=== PATIENT | male | born 1955 | race Caucasian/White ===

== ENCOUNTER 2017-01-18 12:18 | Inpatient (IN) | payer MEDICARE ==
[2017-01-18] MEDS ORDERED: HEPARIN SODIUM,PORCINE 5,000 UNIT/ML 1 ML VIAL IV STA (12:27)
[2017-01-18] MEDS ORDERED: MORPHINE SULFATE 4 MG/ML SYRINGE IVP STA (12:27)
[2017-01-18] MEDS ORDERED: NITROGLYCERIN OINT 1 INCH/GM PACKET TOPICAL STA (12:27)
[2017-01-18 12:31] LABS: Basophils # (A) 0.1 k/uL (0-0.2); Basophils % (A) 1 %; CH 27.6; CHCM 32.4; Eosinophils # (A) 0.3 k/uL (0-0.7); Eosinophils % (A) 2 %; HCT 44.4 % (39.0-53.0); HDW 2.38; HGB 14.3 gm/dL (13.0-17.5); Luc # (Auto) 0.37; Luc % (Auto) 2; Lymphocytes % (A) 13 %; MCH 27.6 pg (25.0-35.0); MCHC 32.3 g/dL (31.0-37.0); MCV 85.7 fL (80.0-100.0); Mean Platelet Volume 7.6; Monocytes # (A) 0.7 k/uL (0-1.0); Monocytes % (A) 5 %; Neutrophils # (A) 11.7 k/uL (1.3-7.7); Neutrophils % (A) 77 %; RBC 5.18 m/uL (4.30-5.90); RDW 13.8 % (11.5-15.5); WBC 15.2 k/uL (3.8-10.6); WBC (Perox) 14.99
[2017-01-18] MEDS ORDERED: LIDOCAINE 2% INJ 20 MG/ML (20 ML MDV) ONE (12:32)
[2017-01-18] MEDS ORDERED: HEPARIN SODIUM,PORCINE 30 ML 30 ML ONE (12:34)
--- NOTE | 2017-01-18 12:36 | ED ---
Chest Pain HPI - General Chief Complaint: Chest Pain Stated Complaint: STEMI Time Seen by Provider: 01/18/17 12:32 Source: EMS Mode of arrival: EMS - History of Present Illness Initial Comments: 61 years old male presented with the chest pain started last night, then the chest pain went away he does have a history of hypertension but no history of heart attacks in the past his chest pain got better last night with a chest pain returned this morning his blood pressure was well over 200 systolic, EMS picked him up and now wants it did the EKG did confirm the STEMI floor assembler was consulted stat Lab was activated on arrival patient's chest pain was 2/10 but his systolic blood pressure was [address] Flores floor assembler performing breath he recommended we need to put him on a nitro drip and 4000 units of heparin. He denies any headaches no blurred vision no slurred speech no signs of TIA or CVA - Related Data Allergies Allergy/AdvReac Type Severity Reaction Status Date / Time Penicillins Allergy Swelling Verified 01/18/17 12:27 Review of Systems ROS Statement: Those systems with pertinent positive or pertinent negative responses have been documented in the HPI. ROS Other: All systems not noted in ROS Statement are negative. EKG Findings - EKG Comments: EKG Findings:: EKG was reviewed, he was sinus bradycardia ventricular rate is 66 FL interval is 180 QRS duration is 100 QT/QTc is 432/416 noticed some healed STEMI in lead 2 and [address] elevation was more than 3-4 mm in each in lead there was some ST depression in lead 1 there was a mild elevation in lead V6 as well Past Medical History Past Medical History: Hypertension History of Any Multi-Drug Resistant Organisms: None Reported Past Psychological History: No Psychological Hx Reported Smoking Status: Never smoker Past Alcohol Use History: None Reported Past Drug Use History: None Reported General Exam - General Exam Comments Initial Comments: General: The patient is awake and alert, in no distress, and does not appear acutely ill. Skin: Skin is warm and dry and no rashes or lesions are noted. Eye: Pupils are equal, round and reactive to light, extra-ocular movements are intact; there is normal conjunctiva bilaterally. Ears, nose, mouth and throat: There are moist mucous membranes and no oral lesions. Neck: The neck is supple, there is no tenderness or JVD. Cardiovascular: There is a regular rate and rhythm. No murmur, rub or gallop is appreciated. Respiratory: To auscultation bilateral, no wheezing no rhonchi no distress respiratory steen noticed Gastrointestinal: Soft, non-distended, non-tender abdomen without masses or organomegaly noted. There is no rebound or guarding present. Bowel sounds are unremarkable. Back: There is no tenderness to palpation in the midline. There is no obvious deformity. Musculoskeletal: Normal ROM, no tenderness, There is no pedal edema. There is no calf tenderness or swelling. No cords were appreciated. Neurological: CN II-XII intact, Cranial nerves III through XII are intact. There are no obvious motor or sensory deficits. Coordination appears grossly intact. Speech is normal. Psychiatric: Cooperative, appropriate mood & affect, normal judgment. Course Vital Signs 01/18/17 12:21 Pulse Rate 56 L Blood Pressure 223/109 O2 Sat by Pulse 100 Oximetry Critical Care Time Total Critical Care Time: 30 Critical Care Time: [facility] was activated based on the EKG transmitted from the EMS, spoke with the floor assembler he recommended to bring the blood pressure down from 230 systolic with the nitro drip and negative more 4000 units of heparin bolus these recommendations was passed onto the in charge nurse chest x-ray was done EKG was repeated morphine was given, patient already had a mild aspirin and nitro on route to the ER, patient hemodynamically was stable was strapped in a stable form to the [facility] Disposition Clinical Impression: STEMI (ST elevation myocardial infarction) Disposition: ADMITTED IP TO THIS HOSP Condition: Fair
[2017-01-18] MEDS ORDERED: ACETAMINOPHEN TAB 325 MG TAB PO PRN (12:39)
[2017-01-18] MEDS ORDERED: MORPHINE SULFATE 10 MG/ML SYRINGE IV PRN (12:39)
[2017-01-18] MEDS ORDERED: NALOXONE 0.4 MG/ML 1 ML VIAL IV PRN (12:39)
[2017-01-18 12:41] LABS: INR 1.1 (<1.1); Partial Thromboplastin Time 24.2 sec (22.0-30.0); Prothrombin Time 11.2 sec (9.0-12.0)
[2017-01-18 12:44] LABS: ALT 32 U/L (21-72); AST 37 U/L (17-59); Alkaline Phosphatase 96 U/L (38-126); Anion Gap 12 mmol/L; Blood Urea Nitrogen 23 mg/dL (9-20); Calcium 9.8 mg/dL (8.4-10.2); Carbon Dioxide 26 mmol/L (22-30); Chloride 103 mmol/L (98-107); Glucose 142 mg/dL (74-99); Non-African American GFR(MDRD) 56 (>60 ml/min/1.73 sqM); Potassium 4.6 mmol/L (3.5-5.1); Sodium 141 mmol/L (137-145); Total Bilirubin 0.5 mg/dL (0.2-1.3); Total Protein 7.6 g/dL (6.3-8.2)
[2017-01-18] MEDS ORDERED: MIDAZOLAM 2 MG/2 ML VIAL ONE (12:44)
[2017-01-18] MEDS ORDERED: fentaNYL (PF) 50 MCG/ML 2 ML AMP ONE (12:44)
[2017-01-18] MEDS ORDERED: NITROGLYCERIN-D5W PMX 50 MG in DEXTROSE/WATER 1 250ML.BAG IV ONE (12:45)
[2017-01-18] MEDS ORDERED: ENALAPRILAT 1.25 MG/ML 1 ML VIAL ONE (12:45)
[2017-01-18] MEDS ORDERED: SODIUM CHLORIDE 0.9% 1,000 ML IV ONE ×2 (12:45→13:50)
[2017-01-18] MEDS ORDERED: ENALAPRILAT 1.25 MG/ML 1 ML VIAL IV ONE (12:48)
[2017-01-18] MEDS ORDERED: fentaNYL (PF) 50 MCG/ML 2 ML AMP IV ONE (12:49)
[2017-01-18] MEDS ORDERED: MIDAZOLAM 2 MG/2 ML VIAL IV ONE (12:50)
[2017-01-18] MEDS ORDERED: BIVALIRUDIN BOLUS 250 MG/50 ML IV ONE ×2 (13:00→13:05)
[2017-01-18] MEDS ORDERED: TICAGRELOR 90 MG TAB ONE (13:03)
[2017-01-18] MEDS ORDERED: TICAGRELOR 90 MG TAB PO ONE (13:05)
[2017-01-18] MEDS ORDERED: BIVALIRUDIN 250 MG in SODIUM CHLORIDE 0.9% 50 ML IV ONE (13:05)
[2017-01-18 13:11] LABS: Creatine Kinase MB 9.9 ng/mL (0.0-2.4)
[2017-01-18] MEDS: NITROGLYCERIN 1000MCG/10ML SYRINGE INTRACORON ONE ×2 (13:11→13:23)
[2017-01-18 13:12] LABS: Troponin I 1.2 ng/mL (0.000-0.034)
--- NOTE | 2017-01-18 13:15 | XR ---
EXAMINATION TYPE: XR chest 1V portable DATE OF EXAM: 01/18/2017 1:08 PM COMPARISON: NONE HISTORY: Chest pain TECHNIQUE: Single frontal view of the chest is obtained. FINDINGS: Heart and mediastinum are normal. Lungs are clear. Diaphragm is normal. There are chest le ads. IMPRESSION: Normal chest. No heart failure.
[2017-01-18] MEDS ORDERED: IOHEXOL 350 MG/ML 100 ML BOTTLE INJ ONE (13:16)
[2017-01-18] MEDS ORDERED: LABETALOL SYRINGE 5 MG/ML IV ONE (13:20)
[2017-01-18] MEDS ORDERED: HYDROmorphone 2 MG/ML 1 ML SYRINGE ONE (13:21)
[2017-01-18] MEDS ORDERED: HYDROmorphone 2 MG/ML 1 ML SYRINGE IV ONE (13:23)
[2017-01-18] MEDS ORDERED: ONDANSETRON 4 MG/2 ML VIAL ONE (13:34)
[2017-01-18] MEDS ORDERED: ATROPINE SULFATE 0.1 MG/ML 10ML SYRINGE IV ONE (13:34)
[2017-01-18] MEDS ORDERED: ONDANSETRON 4 MG/2 ML VIAL IVP ONE (13:36)
[2017-01-18] MEDS ORDERED: DOPamine DRIP 800 MG in DEXTROSE/WATER 1 500ML.BAG IV ONE (13:45)
[2017-01-18] MEDS ORDERED: NOREPINEPHRINE 16 MG in SODIUM CHLORIDE 0.9% 250 ML IV ONE ×4 (13:59)
[2017-01-18] MEDS ORDERED: MAG HYDROX/AL HYDROX/SIMETH 30 ML CUP PO PRN (14:00)
[2017-01-18] MEDS ORDERED: NITROGLYCERIN SL TABS 0.4 MG TAB SUBLINGUAL PRN (14:00)
[2017-01-18] MEDS ORDERED: ZOLPIDEM 5 MG TAB PO PRN (14:00)
[2017-01-18] MEDS ORDERED: ATROPINE SULFATE 0.1 MG/ML 10ML SYRINGE IV PRN (14:00)
[2017-01-18] MEDS ORDERED: RX INFO: IV CONTRAST WAS GIVEN 1 EACH MISC MISCELLANE PRN (14:00)
[2017-01-18 14:16] LABS: Basophils # (A) 0.1 k/uL (0-0.2); Basophils % (A) 1 %; CH 27.9; CHCM 32.3; Eosinophils # (A) 0.2 k/uL (0-0.7); Eosinophils % (A) 2 %; HCT 31.6 % (39.0-53.0); HDW 2.39; Luc # (Auto) 0.24; Luc % (Auto) 2; Lymphocytes # (A) 1.5 k/uL (1.0-4.8); Lymphocytes % (A) 13 %; MCH 27.6 pg (25.0-35.0); MCHC 31.9 g/dL (31.0-37.0); MCV 86.5 fL (80.0-100.0); Mean Platelet Volume 8.5; Monocytes # (A) 0.5 k/uL (0-1.0); Monocytes % (A) 4 %; Neutrophils # (A) 9.3 k/uL (1.3-7.7); Neutrophils % (A) 78 %; RBC 3.65 m/uL (4.30-5.90); RDW 13.8 % (11.5-15.5); WBC 11.9 k/uL (3.8-10.6); WBC (Perox) 11.54
[2017-01-18 14:26] LABS: HGB 10.1 gm/dL (13.0-17.5)
--- NOTE | 2017-01-18 14:38 | CT ---
EXAMINATION TYPE: CT abdomen pelvis wo con DATE OF EXAM: 01/18/2017 2:30 PM COMPARISON: NONE HISTORY: Retroperitoneal bleed, post heart cath CT DLP: 839 mGycm Automated exposure control for dose reduction was used. TECHNIQUE: Helical acquisition of images was performed from the lung bases through the pelvis. FINDINGS: Lung bases are clear. There is no pleural effusion. Heart size is normal. Liver spleen pancreas gallbladder appear normal. Bile ducts are not dilated. There is no adrenal mass . There is IV contrast in the renal collecting systems from apparently recent contrast heart procedur e. Kidneys have normal size and contour. There is no hydronephrosis. There is no retroperitoneal adenopa thy. Abdominal aorta is atheromatous. There is no ascites. Appendix appears normal. There are a few s igmoid diverticula. There is no evidence of diverticulitis. Bladder distends smoothly. There is no si gn of a pelvic mass. There is no adrenal mass. Bony structures are intact. There are spondylotic wilder ges in the lumbar spine. There is bilateral L5 spondylolysis. There is a minimal first-degree L5-S1 s pondylolisthesis. IMPRESSION: MILD SIGMOID DIVERTICULOSIS. NO DIVERTICULITIS. NO EVIDENCE OF RETROPERITONEAL HEMORRHAGE. ATHEROSCLE ROTIC VASCULAR DISEASE. SPONDYLOLYSIS OF L5 WITH MINIMAL FIRST-DEGREE L5-S1 SPONDYLOLISTHESIS.
[2017-01-18 14:53] LABS: Glucose,Whole Blood 125 mg/dL (75-99)
--- NOTE | 2017-01-18 15:03 | CC ---
DATE OF SERVICE: Mr. Song is a 61-year-old gentleman who came to the emergency room with the complaint of chest pain. EKG was suggestive of acute inferior wall myocardial infarction and the patient was advised primary angioplasty. Patient has a history of hypertension. His blood pressure in the emergency room was significantly elevated and patient was treated with nitrates and heparin. PROCEDURE: The right groin was prepped and draped in the usual manner and the skin was infiltrated with 2% Xylocaine. The right femoral artery was entered using Seldinger technique. A #6 Emirati sheath was placed in. Selective coronary angiography was then performed in multiple projections. SELECTIVE CORONARY ANGIOGRAPHY: Left main coronary artery is normal and patent. LAD is a good caliber blood vessel and gives rise to 2 good-sized diagonal branches. The proximal LAD has about 20% to 30% plaque. The first diagonal branch has ostial stenosis of about 40%. The second diagonal branch has a proximal stenosis of 70% which is small-caliber blood vessel. The circumflex coronary artery is a small and nondominant. Right coronary artery is a large caliber blood vessel with total occlusion in the midportion. FINAL IMPRESSION: This study reveals totally occluded mid right coronary artery. There is about 20% to 30% stenosis in the proximal left anterior descending artery and first diagonal branch has an ostial stenosis of 40%, second diagonal branch has 70% stenosis, which is a small-caliber blood vessel. RECOMMENDATIONS: We will proceed with stent to the right coronary artery.
--- NOTE | 2017-01-18 15:07 | CONS ---
DATE OF CONSULTATION: Mr. Song is a 61-year-old gentleman who came to the emergency room with the complaint of chest pain. Patient gives a history that he started having chest pain yesterday. The pain was in the substernal area associated with some nausea. Patient thought it was indigestion. It subsequently subsided. Patient again started having chest pain this morning, which was about 2 to 3 hours prior to coming to the emergency room. The pain was persistent, he was diaphoretic and nauseated. EKG was suggestive of acute inferior wall myocardial infarction. In view of that, the patient was advised emergent cardiac catheterization. Patient has a prior history of smoking, has a history of hypertension. This patient denies any history of diabetes. There is no previous history of myocardial infarction. PAST MEDICAL HISTORY: History of hypertension. Patient had some surgery on his left hand. REVIEW OF SYSTEMS: Patient denies any history for GI bleeding and blood in the stool, black stool. 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 Physical examination at present reveals a 61-year-old gentleman who is obesely built, has been having mild chest discomfort. Initial blood pressure was 201/110 mmHg. HEENT examination is negative. Neck is supple. There is no increase in jugular venous pressure. Both the carotid pulses are felt. There is no bruit. Chest is symmetrical. HEART: The PMI is not felt. First and second heart sounds are normal. There is no evidence of any murmur. Lungs are clinically clear to auscultation and percussion. Abdomen is soft. Liver and spleen are not enlarged. Bowel sounds are heard. EXTREMITIES: Peripheral pulsations are 2+. EKG shows evidence of acute inferior wall myocardial infarction. FINAL IMPRESSION: 1. This patient has evidence of acute inferior wall myocardial infarction. 2. Moderate to severe hypertension. RECOMMENDATIONS: Patient is given nitro paste and started on nitroglycerin drip, heparin, aspirin and the patient will be taken to the [facility].
--- NOTE | 2017-01-18 15:12 | PTCA ---
DATE OF SERVICE: 01/18/2017 PROCEDURE: PTCA and stenting of a totally occluded mid-RCA performed in the setting of an acute ST elevation OR as a primary procedure. Reperfusion accomplished within [address] Jesus Flores. CLINICAL INFORMATION: Mr. Song presented to the emergency room with chest pain and inferior ST elevation and was evaluated by Dr. Madhav Renee who performed coronary angiography and noted that the RCA was totally occluded. He presented with inferior ST elevation. He was hypertensive, required a lot of antihypertensive medications. Following coronary angiography, I proceeded with PCI expeditiously. A left ventricular end-diastolic pressure was about 24 mmHg and there was no gradient across the aortic valve. A pigtail catheter was used to check these pressures after the intervention procedure. PROCEDURE NOTE: The existing 6 Tajik introducer in the right femoral artery was used to perform procedure. A standard right Cayla guide catheter was used to cannulate the right coronary artery. A BMW wire was used to cross the lesion. Predilatation was performed using a 3.0 caliber, 12 mm trek balloon. A 50 mm long, 3.25 caliber Xience stent was deployed at 14 atmospheres. Patient had more chest pain and more prominent inferior ST elevation. Excellent angiographic result was achieved without any complication. There was remarkably good flow noted. Patient continued to be hypertensive. I gave him some labetalol and also IV nitroglycerin was given for a while and then I gave intra-arterial nitroglycerin almost to the extent of 250 mcg totally. The sheath was taken out and a Perclose device used to secure hemostasis. Following this, patient became vasovagal, became bradycardic, hypotensive, requiring atropine and IV fluids and dopamine. However, he continued to be hypotensive, requiring a combination of 5 mcg of dopamine and 8 to 10 mcg of Levophed. Blood pressure was 108. Patient was asymptomatic. EKG showed significant improvement but ST elevation persisted. I was concerned that he may have it a retroperitoneal hematoma. However, the Perclose device was placed uneventfully. In view of continued hypotension with clinical improvement of bradycardia. I suggested that we discontinue the Angiomax which was done. Patient received Brilinta 180 mg orally and he also received aspirin earlier in the ER. I am recommending a CAT scan of the abdomen and pelvis to rule out any retroperitoneal hematoma and then after that he will go to the ICU. There were no other family members available. We could not reach his and there was nobody who came with him to the hospital. I therefore explained the results of the intervention and the concern about hypotension and the need for CT to look for Retroperitoneal hematoma to the patient and he was sent from the Data Management Analyst to the CT scan department. I also discussed my thoughts in detail with Dr. Madhav Renee. This Patient received Consious sedation for 45 min with Versed and dilaudid. His oxygeg sat was monitored closely. The patient had excellent angiographic result without any angiographic complication. YOMAIRA
[2017-01-18] MEDS: SODIUM CHLORIDE 0.9% 1,000 ML IV SCH ×2 (15:32→22:02)
[2017-01-18] MEDS ORDERED: DOPamine DRIP 800 MG in DEXTROSE/WATER 1 500ML.BAG IV SCH (15:45)
--- NOTE | 2017-01-18 15:46 | XR ---
EXAMINATION TYPE: XR chest 1V portable DATE OF EXAM: 01/18/2017 3:41 PM COMPARISON: Today HISTORY: Short of breath TECHNIQUE: Single frontal view of the chest is obtained. FINDINGS: Heart and mediastinum are normal. Lungs are clear. Diaphragm is normal. There are chest le ads. IMPRESSION: Normal chest. No change.
[2017-01-18 17:37] VITALS: BMI 31.6
[2017-01-18 18:54] LABS: Basophils # (A) 0.1 k/uL (0-0.2); Basophils % (A) 1 %; CH 27.9; CHCM 32.4; Eosinophils # (A) 0.3 k/uL (0-0.7); Eosinophils % (A) 2 %; HCT 42.8 % (39.0-53.0); HDW 2.43; Luc # (Auto) 0.32; Luc % (Auto) 2; Lymphocytes # (A) 2.1 k/uL (1.0-4.8); Lymphocytes % (A) 14 %; MCH 27.9 pg (25.0-35.0); MCHC 32.4 g/dL (31.0-37.0); MCV 86.3 fL (80.0-100.0); Monocytes # (A) 0.8 k/uL (0-1.0); Monocytes % (A) 5 %; Neutrophils # (A) 11.9 k/uL (1.3-7.7); Neutrophils % (A) 77 %; RBC 4.96 m/uL (4.30-5.90); RDW 13.8 % (11.5-15.5); WBC 15.5 k/uL (3.8-10.6); WBC (Perox) 16.18
[2017-01-18 18:57] LABS: HGB 13.9 gm/dL (13.0-17.5)
[2017-01-18 18:59] LABS: Magnesium 1.6 mg/dL (1.6-2.3); Potassium 4.6 mmol/L (3.5-5.1)
[2017-01-18] MEDS: MAGNESIUM SULFATE-D5W PMX 1 GM in DEXTROSE/WATER 1 100ML.BAG IVPB SCH (21:55)
[2017-01-18] MEDS: METOPROLOL TARTRATE 12.5 MG TAB PO SCH (22:02)
[2017-01-18] MEDS: ATORVASTATIN 80 MG TAB PO SCH (22:02)
[2017-01-18] MEDS: TICAGRELOR 90 MG TAB PO SCH (22:03)
--- NOTE | 2017-01-18 22:25 | HP ---
DATE OF ADMISSION: 01/18/2017 CHIEF COMPLAINTS: Chest pain. HISTORY OF PRESENT ILLNESS: This 61-year-old gentleman with a past medical history of multiple medical problems including coronary artery disease, history of CVA/TIA, history of myocardial infarction, history of ventricular peritoneal shunt, history of lithotripsy, history of anxiety being followed by Dr. Daksha Townsend in the outpatient setting was admitted with chest pain to [facility]. The patient initially had chest pain last 8:30. The pain went away and this morning again the patient felt severe pain which was 10 out of 10 in intensity which was crushing in type and EMS was taken and patient was taken to [facility] and admitted to the hospital for further evaluation and treatment. Blood pressure elevated, systolic blood pressure 230. The patient was started on heparin. The patient also previously apparently had a stroke. Also, there is some mild slurring. After admission, EKG showed hyperacute inferior wall myocardial infarction. The chest x-ray showed no acute abnormality. The patient was seen by Cardiology in consultation. The patient underwent cardiac catheterization as well as stenting of the mid RCA. The patient also had abdominal and pelvis CAT scan to rule out the possibility of hemorrhage showed only atherosclerotic vascular disease and spondylolisthesis. The patient had mild shortness of breath. The chest x-ray did not show acute abnormality. Otherwise, WBC 11.3, hemoglobin is 10.1 from 14.0 on admission, possibly dilutional. Troponin is 1.200. Creatinine is 1.300. There is no history of fever, rigors or chills at this time. Past medical history of cerebrovascular accident, transient ischemic, history of hypertension, myocardial infarction. History of degenerative joint disease, history of cardiac catheterization. Medications prior to admission: 1. Valsartan hydrochlorothiazide 320/25 p.o. daily. 2. Lopressor 50 mg b.i.d. 3. Ecotrin 81 mg. 4. Aleve 220 mg p.o. q.h.s. and p.r.n. 5. Lipitor 20 mg. 6. Stool softener 1 tablet daily p.r.n. ALLERGIES: PENICILLIN. FAMILY HISTORY: History of cancer, CVA, dementia, diabetes, prostate disorder in the family. SOCIAL HISTORY: Previous history of smoking, history of THC. REVIEW OF SYSTEMS: ENT: No diminishing hearing. No diminished vision. CARDIOVASCULAR: As mentioned earlier. RESPIRATORY: As mentioned earlier. GI: No nausea. : No dysuria. Nervous system: No numbness or weakness. ALLERGY/IMMUNOLOGY: No asthma or hayfever. MUSCULOSKELETAL: As mentioned earlier. HEMATOLOGY: No history of anemia. ENDOCRINE: No history of diabetes or hypothyroidism. CONSTITUTIONAL: As mentioned earlier. DERMATOLOGY: Negative. RHEUMATOLOGY: Negative. PSYCHIATRY: As mentioned earlier. PHYSICAL EXAMINATION: The patient is alert and oriented times three. Pulse 63. blood pressure 130/64. Respiratory rate 19. Temperature normal. Pulse ox 94% on room air. HEENT: Conjunctivae normal. NECK: No jugular venous distention. CARDIOVASCULAR: S1, S2 muffled. RESPIRATORY: Breath sounds diminished at the bases. A few scattered rhonchi and crackles. ABDOMEN: Soft, nontender. No mass palpable. Legs: No edema. No swelling. Nervous system: Higher functions as mentioned earlier. Moves all four limbs. No focal deficits. LYMPHATICS: No lymph nodes palpable in the neck, axillae or groin. SKIN: No ulcer, rash or bleeding. LABS: WBC is 11.1, hemoglobin 10.9 and creatinine is 1.30. ASSESSMENT: 1. Hyperacute inferior wall myocardial infarction and ST segment elevation myocardial infarction status post cardiac catheterization, stenting. 2. Anemia, normocytic undetermined etiology. 3. Increased WBC, possibly reactive. 4. Increased creatinine with possible acute kidney failure. 5. Increased random blood sugar. 6. Increased creatinine kinase. 7. Troponin I 1.200. 8. History of cerebrovascular accident, transient ischemic attack. 9. Hearing deficits. 10. Hypertension. 11. Degenerative joint disease. 12. History of nicotine dependence. 13. History of ventriculoperitoneal shunt. 14. History of lithotripsy. 15. Anxiety, not otherwise specified. 16. History of THC. 17. Remote history of nicotine dependence. 18. FULL CODE. 19. Mild obesity with body mass index 31.6. ASSESSMENT: This 61-year-old gentleman who presented with multiple complex medical issues, we will monitor the patient closely, continue the current medications, continue symptomatic treatment. Post stent protocol. Otherwise, the CT scan noted. Otherwise, continue antiplatelets agents and beta blockers, and the rest of the medications. Closely follow with cardiology. Prognosis guarded. Further recommendations to follow. MTDD
[2017-01-19] MEDS: MAGNESIUM SULFATE-D5W PMX 1 GM in DEXTROSE/WATER 1 100ML.BAG IVPB SCH (00:26)
[2017-01-19 04:51] LABS: Basophils # (A) 0.1 k/uL (0-0.2); Basophils % (A) 0 %; CH 27.5; CHCM 32.4; Eosinophils # (A) 0.4 k/uL (0-0.7); Eosinophils % (A) 4 %; HCT 37.5 % (39.0-53.0); HDW 2.38; HGB 12.2 gm/dL (13.0-17.5); Luc # (Auto) 0.28; Luc % (Auto) 2; Lymphocytes % (A) 16 %; MCH 27.6 pg (25.0-35.0); MCHC 32.4 g/dL (31.0-37.0); Mean Platelet Volume 7.4; Monocytes # (A) 0.8 k/uL (0-1.0); Monocytes % (A) 7 %; Neutrophils # (A) 8.8 k/uL (1.3-7.7); Neutrophils % (A) 71 %; RBC 4.41 m/uL (4.30-5.90); WBC 12.4 k/uL (3.8-10.6); WBC (Perox) 13.73
[2017-01-19 05:34] LABS: ALT 56 U/L (21-72); AST 254 U/L (17-59); Alkaline Phosphatase 77 U/L (38-126); Anion Gap 9 mmol/L; Blood Urea Nitrogen 19 mg/dL (9-20); Calcium 8.9 mg/dL (8.4-10.2); Carbon Dioxide 24 mmol/L (22-30); Chloride 108 mmol/L (98-107); Glucose 113 mg/dL (74-99); Magnesium 2.3 mg/dL (1.6-2.3); Non-African American GFR(MDRD) >60 (>60 ml/min/1.73 sqM); Potassium 4.4 mmol/L (3.5-5.1); Sodium 141 mmol/L (137-145); Total Bilirubin 0.4 mg/dL (0.2-1.3)
[2017-01-19] MEDS: METOPROLOL TARTRATE 12.5 MG TAB PO SCH ×3 (08:34→20:33)
[2017-01-19] MEDS: ASPIRIN 81 MG CHEW PO SCH (08:34)
[2017-01-19] MEDS: TICAGRELOR 90 MG TAB PO SCH ×2 (08:35→20:33)
[2017-01-19] MEDS ORDERED: PANTOPRAZOLE 40 MG/10 ML VIAL IV SCH (09:00)
--- NOTE | 2017-01-19 09:57 | P.CNPUL ---
History of Present Illness Consult date: 01/19/17 Requesting physician: Vern Dixon Reason for consult: chest pain Chief complaint: Chest pain History of present illness: This is a very pleasant 61-year-old gentleman who follows with Dr. Townsend as his primary care physician. He has a history of hypertension, hyperlipidemia. He presented here yesterday with complaints of chest pain. He was found to have a ST segment elevation in the inferior leads. He was taken to the cardiac catheterization lab and found to have a a 20-30% stenosis of the proximal LAD and first diagonal branch had a 40% ostial stenosis, the second diagonal branch has a 70% stenosis which is a small caliber vessel he was also found to have a totally occluded mid right coronary artery with subsequent stenting. There was some concern regarding possible retroperitoneal bleed following the catheterization however computed tomography scan of the abdomen revealed no evidence of retroperitoneal hemorrhage. He is seen today in consultation in the intensive care unit. He is alert and oriented in no acute distress. He denies any chest pain, palpitations, lightheadedness or dizziness. No shortness of breath, cough or congestion. He is maintaining good O2 saturations in the 90s on room air. He has a 0.9 normal saline at 75 ML's per hour. His chest x-ray shows cardiomegaly with some minimal cephalization. He is hemodynamically stable. Review of Systems 14 point review of system was conducted. All negative other than as mentioned in HPI. Past Medical History Past Medical History: Coronary Artery Disease (CAD), Chest Pain / Angina, CVA/ TIA, Hearing Disorder / Deafness, Hyperlipidemia, Hypertension, Myocardial Infarction (VT), Osteoarthritis (OA) Last Myocardial Infarction Date:: t History of Any Multi-Drug Resistant Organisms: None Reported Past Surgical History: Heart Catheterization With Stent, Orthopedic Surgery, Ventriculoperitoneal Shunt Additional Past Surgical History / Comment(s): Lithotripsy Past Anesthesia/Blood Transfusion Reactions: No Reported Reaction, Motion Sickness Date of Last Stent Placement:: t Past Psychological History: Anxiety Smoking Status: Former smoker Past Alcohol Use History: None Reported Past Drug Use History: Marijuana Additional Drug Use History / Comment(s): Medical Marijuana - Past Family History Father History Unknown: Yes Family Medical History: Cancer, Coronary Artery Disease (CAD), Dementia, Diabetes Mellitus, Prostate Disorder Mother History Unknown: Yes Family Medical History: Diabetes Mellitus, Osteoarthritis (OA) Medications and Allergies Home Medications Medication Instructions Recorded Confirmed Type Aspirin [Adult Low Dose Aspirin EC] 81 mg PO HS 01/18/17 01/18/17 History Atorvastatin Calcium [Lipitor] 20 mg PO HS 01/18/17 01/18/17 History Metoprolol Tartrate [Lopressor] 50 mg PO BID 01/18/17 01/18/17 History Naproxen Sodium [Aleve] 220 mg PO HS PRN 01/18/17 01/18/17 History Stool Softener 1 tab PO DAILY PRN 01/18/17 History Valsartan/Hydrochlorothiazide 1 tab PO DAILY 01/18/17 01/18/17 History [Valsartan-Hctz 320-25 mg Tab] Allergies Allergy/AdvReac Type Severity Reaction Status Date / Time Penicillins Allergy Swelling Verified 01/18/17 17:46 Physical Exam Vitals: Vital Signs Temp Pulse Resp BP Pulse Ox 01/19/17 08:00 98.3 F 57 L 18 164/61 99 01/19/17 07:00 56 L 16 160/62 100 01/19/17 06:00 53 L 18 144/61 98 01/19/17 05:30 51 L 16 144/61 100 01/19/17 05:00 52 L 12 111/55 97 01/19/17 04:30 57 L 14 111/55 97 01/19/17 04:00 97.7 F 57 L 12 110/59 97 01/19/17 03:30 55 L 14 110/59 97 01/19/17 03:00 53 L 14 122/60 98 01/19/17 02:30 53 L 12 122/60 99 01/19/17 02:00 53 L 21 115/53 93 L 01/19/17 01:30 55 L 18 115/53 91 L 01/19/17 01:00 57 L 15 143/69 98 01/19/17 00:30 56 L 40 H 143/69 99 01/19/17 00:00 55 L 14 133/60 99 01/18/17 23:30 55 L 16 133/60 97 01/18/17 23:14 51 L 16 133/60 94 L 01/18/17 23:00 56 L 17 135/51 97 01/18/17 22:30 54 L 16 135/51 100 01/18/17 22:00 54 L 20 122/58 96 01/18/17 21:30 54 L 19 122/58 96 01/18/17 21:00 57 L 23 154/76 95 01/18/17 20:30 61 22 154/76 90 L 01/18/17 20:00 59 L 20 144/59 86 L 01/18/17 19:30 61 22 144/59 95 01/18/17 19:00 60 23 118/73 98 01/18/17 18:30 63 31 H 174/81 95 01/18/17 18:00 65 22 154/59 96 01/18/17 17:30 64 41 H 137/81 95 01/18/17 17:00 64 19 146/79 96 01/18/17 16:30 64 18 159/74 95 01/18/17 16:00 59 L 16 103/63 97 01/18/17 15:30 59 L 15 137/64 95 01/18/17 15:15 63 19 137/61 95 01/18/17 15:00 61 25 H 152/65 94 L 01/18/17 14:45 97.6 F 55 L 18 133/63 93 L Intake and Output 01/18/17 01/19/17 01/19/17 22:59 06:59 14:59 Intake Total 1285 1180 195 Output Total 495 675 200 Balance 790 505 -5 Intake: Intake, IV Titration 925 700 75 Amount Magnesium Sulfate-D5w Pmx 100 100 1 gm In Dextrose/Water 1 100ml.bag @ 100 mls/hr IVPB Q1H [facility] Rx#: [id number] Sodium Chloride 0.9% 1, 825 600 75 000 ml @ 150 mls/hr IV . Q6H40M [facility] Rx#:[id number] Oral 360 480 120 Output: Urine 495 675 200 Other: Voiding Method Urinal Urinal # Voids 1 Weight 88.9 kg 85 kg GENERAL EXAM: Alert, active, comfortable in no apparent distress. HEAD: Normocephalic. EYES: Normal reaction of pupils, equal size. NOSE: Clear with pink turbinates. THROAT: No erythema or exudates. NECK: No masses, no JVD. CHEST: No chest wall deformity. LUNGS: Equal air entry with no crackles, wheeze, rhonchi or dullness. CVS: S1 and S2 normal with no audible mumurs, regular rhythm. ABDOMEN: No hepatosplenomegaly, normal bowel sounds, no guarding or rigidity. SPINE: No scoliosis or deformity SKIN: No rashes CENTRAL NERVOUS SYSTEM: No focal deficits, tone is normal in all 4 extremities. Extremities: There is no significant peripheral edema. No clubbing, no cyanosis. Peripheral pulses are intact. Results - Laboratory Findings CBC and BMP: 01/19/17 04:00 01/19/17 04:00 PT/INR, D-dimer PT 11.2 sec (9.0-12.0) 01/18/17 12:20 INR 1.1 (<1.1) 01/18/17 12:20 Abnormal lab findings: Abnormal Labs 01/18/17 01/18/17 01/18/17 14:08 14:33 18:32 WBC 11.9 H 15.5 H RBC 3.65 L Hgb 10.1 L D Hct 31.6 L Neutrophils # 9.3 H 11.9 H Chloride Glucose POC Glucose (mg/dL) 125 H AST Total Protein Albumin 01/19/17 01/19/17 04:00 04:00 WBC 12.4 H RBC Hgb 12.2 L Hct 37.5 L Neutrophils # 8.8 H Chloride 108 H Glucose 113 H POC Glucose (mg/dL) AST 254 H Total Protein 6.0 L Albumin 3.2 L - Diagnostic Findings Chest x-ray: image reviewed Assessment and Plan Plan: Impression: #1 Acute inferior wall VT status post stenting to the RCA. #2 Hypertension. #3 Hyperlipidemia. #4 Degenerative joint disease. Plan: The patient was seen and evaluated by Dr. Zuniga. His chest x-ray and labs were reviewed. The patient is stable from the pulmonary and critical care standpoint and could be transferred out of the ICU today. We'll continue with his current medications including Brilinta and aspirin. He is on Protonix for GI prophylaxis. We'll increase his activity as tolerated. We'll continue to follow.
[2017-01-19] MEDS: SODIUM CHLORIDE 0.9% 1,000 ML IV SCH (10:10)
[2017-01-19] MEDS: LOSARTAN 25 MG TAB PO SCH (10:10)
--- NOTE | 2017-01-19 12:55 | ECHOF ---
Referral Reason:Inf STEMI MEASUREMENTS -------- HEIGHT: 167.6 cm WEIGHT: 84.8 kg BP: 155/77 RVIDd: 3.1 cm (< 3.3) IVSd: 1.3 cm (0.6 - 1.1) LVIDd: 4.9 cm (3.9 - 5.3) LVPWd: 1.2 cm (0.6 - 1.1) IVSs: 1.7 cm LVIDs: 3.5 cm LVPWs: 1.6 cm LA Diam: 4.2 cm (2.7 - 3.8) LAESV Index (A-L): 22.00 ml/m Ao Diam: 2.9 cm (2.0 - 3.7) AV Cusp: 1.9 cm (1.5 - 2.6) MV EXCURSION: 17.354 mm (> 18.000) MV EF SLOPE: 72 mm/s (70 - 150) EPSS: 0.8 cm MV E Mahesh: 0.80 m/s MV DecT: 296 ms MV A Mahesh: 0.82 m/s MV E/A Ratio: 0.98 FINDINGS -------- Sinus rhythm. This was a technically good study. The left ventricular size is normal. There is mild concentric left ventricular hypertrophy. Overall left ventricular systolic function is low-normal with, an EF between 50 - 55 %. Basal inferior LV wall motion is hypokinetic. The right ventricle is normal in size and function. Normal LA size by volume 22+/-6 ml/m2. The right atrium is normal in size. The aortic valve is trileaflet and appears structurally normal. The mitral valve is normal. There is trace to mild mitral regurgitation. The tricuspid valve appears structurally normal. No regurgitation noted The pulmonic valve was not well visualized. There is no pulmonic regurgitation present. There is no pericardial effusion. CONCLUSIONS -------- 1. Sinus rhythm. 2. This was a technically good study. 3. There is mild concentric left ventricular hypertrophy. 4. Normal LA size by volume 22+/-6 ml/m2. 5. There is trace to mild mitral regurgitation. 6. The tricuspid valve appears structurally normal. 7. The pulmonic valve was not well visualized. 8. There is no pulmonic regurgitation present. 9. There is no pericardial effusion. DESIZING MACHINE OPERATOR HEAD END: Sejal Stratton RDCS
[2017-01-19] MEDS: amLODIPine 10 MG TAB PO SCH (15:04)
[2017-01-19 16:14] LABS: Appearance,Urine Clear (Clear); Bilirubin,Urine Negative (Negative); Glucose,Urine (UA) Negative (Negative); Ketones,Urine Negative (Negative); Leukocyte Esterase,Urine Negative (Negative); Nitrite,Urine Negative (Negative); Protein,Urine Negative (Negative); Specific Gravity,Urine 1.003 (1.001-1.035); UA Billing (MACRO vs. MICRO) CHEM; Urobilinogen,Urine <2.0 mg/dL (<2.0)
[2017-01-19] MEDS ORDERED: ALPRAZolam 0.25 MG TAB PO PRN (19:08)
--- NOTE | 2017-01-19 19:37 | PN ---
61-year-old gentleman admitted to the hospital by Zack. Patient admitted to the hospital with acute inferior myocardial wall infarction yesterday, underwent cardiac catheterization done by Dr. Madhav Renee and RCA stent was done by Dr. Jesus Flores. Patient has been doing very well. The patient was on dopamine for a short period of time. Has been taken off. The patient blood pressures have been running high. We will add amlodipine 10 mg p.o. daily and continue other medications. We will hold the metoprolol tartrate if the pulse rate is less than 60. Continue potassium and Cozaar 25 mg p.o. daily, atorvastatin 80 mg p.o. daily. Patient denies any symptoms. Patient is on Brilinta 90 mg p.o. b.i.d. along with aspirin 81 mg p.o. daily. Patient's vital signs are stable. Denies any chest or pressure. Patient quit smoking a few years ago. Patient pulse rate of 65 beats per minute and regular, blood pressure of 177/78, received 10 mg amlodipine for control of blood pressure. Respiratory rate of 18. HEAD: Normocephalic. HEENT unremarkable. Neck is supple. No thyroid enlargement. No bruit noted. Good carotid upstroke bilaterally. Chest is symmetrical. CARDIAC EXAMINATION: S1, S2. Lungs are clinically clear to auscultation and percussion. ABDOMEN: Soft, no organomegaly. Active bowel sounds. EXTREMITIES: Peripheral pulses. No pedal edema. 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 ASSESSMENT: 1. Status post acute inferior myocardial wall infarction with stenting of the RCA stable at present time. 2. Hypertension. 3. Hyperlipidemia. Continue current medications. We will add amlodipine to control the blood pressure. Patient may be able to be transferred to telemetry if a bed is needed and increase his activities once he gets to telemetry.
--- NOTE | 2017-01-19 19:54 | PN ---
DATE OF SERVICE: 01/19/2017 This 61-year-old gentleman who was admitted with chest pain and acute inferior wall myocardial infarction, underwent cardiac catheterization and stenting also. The patient also blood pressure also elevated. The patient monitored in the ICU. Cardiology is following the patient closely. 2-D echo was done which showed ejection fraction 50% to 55% with basal inferior LV motion hypokinetic. Past medical history reviewed. REVIEW OF SYSTEMS: CARDIOVASCULAR: As mentioned earlier. RESPIRATORY: As mentioned earlier. GI: No nausea. : No dysuria. Nervous system: No numbness or weakness. Current medications are reviewed and include: 1. Tylenol 650 q.4 p.r.n. 2. Maalox 30 mL q4h p.r.n. 3. Norvasc 10 mg daily. 4. Aspirin 81 mg daily. 5. Lipitor 80 mg p.o. q.h.s. 6. Ectropion 0.5. 7. Zocor 25 mg daily. 8. Lopressor 12.5 mg b.i.d. 9. Morphine sulfate 5 mg q2 p.r.n. 10. Narcan 0.2 q.2 p.r.n. 11. Nitro 0.4 sublingual p.r.n. 12. Protonix 40 mg daily. 13. Brilinta 90 mg p.o. b.i.d. 14. Ambien 5 mg q.h.s. p.r.n. PHYSICAL EXAMINATION: The patient is alert and oriented times three. Pulse 57, blood pressure 142/66, respiratory rate 12, temperature 98.2, pulse ox 97% on room air. HEENT: Conjunctivae normal. NECK: No JVD. CARDIOVASCULAR: S1, S2 muffled. RESPIRATORY: Breath sounds diminished at bases. A few scattered rhonchi, no crackles. ABDOMEN: Soft, nontender. No mass palpable. LEGS: No edema. No swelling. CENTRAL NERVOUS SYSTEM: No focal deficits. LABS: WBC 12.5, Hemoglobin 12.2 and glucose 113, troponin 1.80, AST 3254. ASSESSMENT: 1. Hyperacute inferior wall myocardial infarction with ST segment elevation myocardial infarction status post cardiac catheterization and stenting of the right coronary artery. 2. Anemia, normocytic undetermined etiology. 3. Increased WBC, possibly reactive. 4. Increased creatinine with possible acute renal failure, possibly prerenal factors and acute tubular necrosis. 5. Increased random blood sugar. 6. Increased creatinine kinase. 7. Troponin 71.800. 8. History of cerebrovascular accident, transient ischemic attack. 9. Hearing deficits. 10. Hypertension, essential. 11. Degenerative joint disease. 12. History of nicotine dependence. 13. History of intraperitoneal shunt. 14. History of lithotripsy. 15. Anxiety not otherwise specified. 16. History of THC. 17. Remote history of nicotine dependence. 18. Obesity with body mass index of 31.6. 19. FULL CODE. 20. Increased AST. RECOMMENDATIONS AND DISCUSSION: In this 61-year-old gentleman woman who presented with multiple complex medical issues, we will monitor the patient closely. Continue with current medications. Continue with antiplatelet agents. Continue with Lipitor. Continue with amlodipine, Brilinta, otherwise, closely monitor. Repeat labs will be ordered. Prognosis guarded because of multiple complex medical issues. Gradually increase the activity. Discussed with the patient who understands and agrees. Further recommendations to follow.
[2017-01-19] MEDS: ATORVASTATIN 80 MG TAB PO SCH (20:33)
[2017-01-20 06:43] LABS: CHCM 32.8; HCT 38.7 % (39.0-53.0); HDW 2.42; HGB 12.3 gm/dL (13.0-17.5); MCH 27.3 pg (25.0-35.0); MCHC 31.9 g/dL (31.0-37.0); MCV 85.7 fL (80.0-100.0); Mean Platelet Volume 8.4; RBC 4.52 m/uL (4.30-5.90); WBC 12.6 k/uL (3.8-10.6); WBC (Perox) 13.64
[2017-01-20 07:03] LABS: Anion Gap 9 mmol/L; Blood Urea Nitrogen 20 mg/dL (9-20); Calcium 9.1 mg/dL (8.4-10.2); Carbon Dioxide 25 mmol/L (22-30); Chloride 106 mmol/L (98-107); Glucose 100 mg/dL (74-99); Non-African American GFR(MDRD) >60 (>60 ml/min/1.73 sqM); Potassium 4.3 mmol/L (3.5-5.1); Sodium 140 mmol/L (137-145)
[2017-01-20 08:56] LABS: Add Differential Manual Differential
[2017-01-20 09:03] LABS: Nucleated Red Blood Cells 0 /100 WBC (0-0); Total Cells Counted 100
[2017-01-20 09:04] LABS: RBC Morphology Normal
[2017-01-20] MEDS: METOPROLOL TARTRATE 12.5 MG TAB PO SCH ×2 (09:33→21:30)
[2017-01-20] MEDS: ASPIRIN 81 MG CHEW PO SCH (09:33)
[2017-01-20] MEDS: amLODIPine 10 MG TAB PO SCH (09:33)
[2017-01-20] MEDS: LOSARTAN 25 MG TAB PO SCH (09:33)
[2017-01-20] MEDS: PANTOPRAZOLE 40 MG TABLET PO SCH (09:34)
[2017-01-20] MEDS: TICAGRELOR 90 MG TAB PO SCH ×2 (09:34→21:30)
[2017-01-20 11:29] VITALS: RESP 18
[2017-01-20] MEDS: SODIUM CHLORIDE 0.9% 1,000 ML IV SCH (11:46)
--- NOTE | 2017-01-20 12:00 | P.PN ---
Subjective Principal diagnosis: Inferior STEMI This is a 61-year-old gentleman who presented to the hospital with an acute inferior wall myocardial infarction. He underwent angioplasty with stenting of right coronary artery. Echocardiogram with Doppler study revealed an ejection fraction of 50-55%. Patient was seen and examined on the telemetry unit today, denies any chest pain or difficulty in breathing. Has been up ambulating without any difficulty. Blood pressure 162/70 with a heart rate in the 60s this morning. We will increase his dose of Cozaar to 50 mg daily. Objective - Vital Signs Vital signs: Vital Signs Temp 97.1 F L 01/20/17 11:17 Pulse 60 01/20/17 11:17 Resp 18 01/20/17 11:17 BP 163/74 01/20/17 11:17 Pulse Ox 99 01/20/17 11:17 Intake & Output 01/19/17 01/20/17 01/20/17 18:59 06:59 18:59 Intake Total 775 220 240 Output Total 2600 150 Balance -1825 70 240 Weight 85 kg 86 kg Intake: Intake, IV Titration 215 20 Amount Sodium Chloride 0.9% 1, 75 000 ml @ 150 mls/hr IV . Q6H40M [facility] Rx#:[id number] Sodium Chloride 0.9% 1, 140 20 000 ml @ 20 mls/hr IV . Q24H [facility] Rx#:[id number] Oral 360 200 240 Blood Product 200 Output: Urine 2600 150 Other: Voiding Method Urinal Toilet Toilet Urinal Urinal # Voids 1 0 1 - Exam PHYSICAL EXAMINATION: HEENT: Head is atraumatic, normocephalic. Pupils equal, round. Neck is supple. There is no elevated jugular venous pressure. HEART EXAMINATION: Heart S1, S2 normal. No murmur or gallop heard. CHEST EXAMINATION: Lungs are clear with diminished air entry to bilateral bases. ABDOMEN: Soft, nontender. Bowel sounds are heard. No organomegaly noted. EXTREMITIES: 2+ peripheral pulses with no evidence of peripheral edema and no calf tenderness noted. NEUROLOGIC patient is awake, alert and oriented -3. . - Labs CBC & Chem 7: 01/20/17 06:12 01/20/17 06:12 Labs: Abnormal Lab Results - Last 24 Hours (Table) 01/19/17 01/20/17 01/20/17 Range/Units 14:35 06:12 06:12 WBC 12.6 H (3.8-10.6) k/uL Hgb 12.3 L (13.0-17.5) gm/dL Hct 38.7 L (39.0-53.0) % Neutrophils # (Manual) 9.1 H (1.3-7.7) k/uL Glucose 100 H (74-99) mg/dL Urine Opiates Screen Detected H (NotDetected) Assessment and Plan (1) ST elevation (STEMI) myocardial infarction involving right coronary artery Status: Acute (2) HTN (hypertension) Status: Acute (3) Hyperlipemia Status: Acute (4) S/P right coronary artery (RCA) stent placement Status: Acute Plan: We will increase the dose of Cozaar to 50 mg daily, repeat a chest x-ray today. Have the patient up ambulating in the hallway today. Plan for possible discharge home in 24-48 hours if stable. DNP note has been reviewed, I agree with a documented findings and plan of care. Patient was seen and examined.
--- NOTE | 2017-01-20 14:26 | P.PN ---
Subjective Principal diagnosis: ST segment elevation myocardial infarction. This is a very pleasant 61-year-old gentleman who follows with Dr. Townsend as his primary care physician. He has a history of hypertension, hyperlipidemia. He presented here yesterday with complaints of chest pain. He was found to have a ST segment elevation in the inferior leads. He was taken to the cardiac catheterization lab and found to have a a 20-30% stenosis of the proximal LAD and first diagonal branch had a 40% ostial stenosis, the second diagonal branch has a 70% stenosis which is a small caliber vessel he was also found to have a totally occluded mid right coronary artery with subsequent stenting. There was some concern regarding possible retroperitoneal bleed following the catheterization however computed tomography scan of the abdomen revealed no evidence of retroperitoneal hemorrhage. He is seen today in consultation in the intensive care unit. He is alert and oriented in no acute distress. He denies any chest pain, palpitations, lightheadedness or dizziness. No shortness of breath, cough or congestion. He is maintaining good O2 saturations in the 90s on room air. He has a 0.9 normal saline at 75 ML's per hour. His chest x-ray shows cardiomegaly with some minimal cephalization. He is hemodynamically stable. The patient is seen again today in follow-up 01/20/2017 on the selective care unit. He is currently awake and alert in no acute distress. He denies any recurrent chest pain, palpitations lightheadedness or dizziness. No significant shortness of breath, cough or congestion. He is maintaining good O2 saturations in the upper 90s on room air. He's been hemodynamically stable. He has been up ambulating without difficulty. Objective - Vital Signs Vital signs: Vital Signs Temp 97.1 F L 01/20/17 11:17 Pulse 58 L 01/20/17 12:00 Resp 18 01/20/17 12:00 BP 163/74 01/20/17 11:17 Pulse Ox 99 01/20/17 11:17 Intake & Output 01/19/17 01/20/17 01/20/17 18:59 06:59 18:59 Intake Total 775 220 480 Output Total 2600 150 Balance -1825 70 480 Weight 85 kg 86 kg Intake: Intake, IV Titration 215 20 Amount Sodium Chloride 0.9% 1, 75 000 ml @ 150 mls/hr IV . Q6H40M [facility] Rx#:[id number] Sodium Chloride 0.9% 1, 140 20 000 ml @ 20 mls/hr IV . Q24H [facility] Rx#:[id number] Oral 360 200 480 Blood Product 200 Output: Urine 2600 150 Other: Voiding Method Urinal Toilet Toilet Urinal Urinal # Voids 1 0 1 - Exam GENERAL EXAM: Alert, active, comfortable in no apparent distress. HEAD: Normocephalic. EYES: Normal reaction of pupils, equal size. NOSE: Clear with pink turbinates. THROAT: No erythema or exudates. NECK: No masses, no JVD. CHEST: No chest wall deformity. LUNGS: Equal air entry with no crackles, wheeze, rhonchi or dullness. CVS: S1 and S2 normal with no audible murmurs, regular rhythm. ABDOMEN: No hepatosplenomegaly, normal bowel sounds, no guarding or rigidity. SPINE: No scoliosis or deformity SKIN: No rashes CENTRAL NERVOUS SYSTEM: No focal deficits, tone is normal in all 4 extremities. Extremities: There is no significant peripheral edema. No clubbing, no cyanosis. Peripheral pulses are intact. - Labs CBC & Chem 7: 01/20/17 06:12 01/20/17 06:12 Labs: Abnormal Lab Results - Last 24 Hours (Table) 01/19/17 01/20/17 01/20/17 Range/Units 14:35 06:12 06:12 WBC 12.6 H (3.8-10.6) k/uL Hgb 12.3 L (13.0-17.5) gm/dL Hct 38.7 L (39.0-53.0) % Neutrophils # (Manual) 9.1 H (1.3-7.7) k/uL Glucose 100 H (74-99) mg/dL Urine Opiates Screen Detected H (NotDetected) Assessment and Plan Plan: Impression: #1 Acute inferior wall [place] status post stenting to the RCA. Preserved left ventricular systolic function with estimated ejection fraction 50-55%. #2 Hypertension. #3 Hyperlipidemia. #4 Degenerative joint disease. Plan: The patient was seen and evaluated by Dr. Zuniga. We'll continue with his current medications including Brilinta and aspirin. He is on Protonix for GI prophylaxis. We'll increase his activity as tolerated. The plan is for probable discharge in the a.m. We'll follow the patient on an as-needed basis.
--- NOTE | 2017-01-20 17:24 | P.PN ---
Subjective 61-year-old gentleman is admitted to the hospital with a STEMI in the inferior leads. Patient was noted to have an RCA lesion is status post drug-eluting stent placement. Currently denies having any chest pain, difficult in breathing, nausea, vomiting , diarrhea. Objective - Vital Signs Vital signs: Vital Signs Temp 97.2 F L 01/20/17 16:00 Pulse 59 L 01/20/17 16:00 Resp 18 01/20/17 16:00 BP 132/66 01/20/17 16:00 Pulse Ox 97 01/20/17 16:00 Intake & Output 01/19/17 01/20/17 01/20/17 18:59 06:59 18:59 Intake Total 775 220 940 Output Total 2600 150 Balance -1825 70 940 Weight 85 kg 86 kg Intake: Intake, IV Titration 215 20 Amount Sodium Chloride 0.9% 1, 75 000 ml @ 150 mls/hr IV . Q6H40M [facility] Rx#:[id number] Sodium Chloride 0.9% 1, 140 20 000 ml @ 20 mls/hr IV . Q24H [facility] Rx#:[id number] Oral 360 200 940 Blood Product 200 Output: Urine 2600 150 Other: Voiding Method Urinal Toilet Toilet Urinal Urinal # Voids 1 0 1 # Bowel Movements 1 - Exam Physical exam Gen. appearance oriented 3 in no distress Neck is supple no JVD Lungs good air entry clear to auscultation no rhonchi or wheezing Heart S1-S2 heard regular rate and rhythm no murmurs appreciated Abdomen is soft nontender no organomegaly bowel sounds are intact Neurologically cranial nerves II-12 grossly intact no focal motor or sensory deficits noted Skin no abnormalities appreciated - Labs CBC & Chem 7: 01/20/17 06:12 01/20/17 06:12 Labs: Abnormal Lab Results - Last 24 Hours (Table) 01/20/17 01/20/17 Range/Units 06:12 06:12 WBC 12.6 H (3.8-10.6) k/uL Hgb 12.3 L (13.0-17.5) gm/dL Hct 38.7 L (39.0-53.0) % Neutrophils # (Manual) 9.1 H (1.3-7.7) k/uL Glucose 100 H (74-99) mg/dL Assessment and Plan Plan: #1 CAD status post drug-eluting stent placement to the RCA admitted with STEMI #2 essential hypertension that is slightly not well-controlled . #3 dyslipidemia # plan Patient will be monitored overnight for any telemetry abnormalities. Medication changes were made to improve blood pressure control. Will likely be discharged in the next 24-48 hours.
[2017-01-20] MEDS: ATORVASTATIN 80 MG TAB PO SCH (21:30)
[2017-01-21 06:55] LABS: Anion Gap 10 mmol/L; Blood Urea Nitrogen 22 mg/dL (9-20); Calcium 9.5 mg/dL (8.4-10.2); Carbon Dioxide 25 mmol/L (22-30); Chloride 107 mmol/L (98-107); Glucose 100 mg/dL (74-99); Non-African American GFR(MDRD) >60 (>60 ml/min/1.73 sqM); Potassium 4.5 mmol/L (3.5-5.1); Sodium 142 mmol/L (137-145)
[2017-01-21 07:11] LABS: Basophils # (A) 0.1 k/uL (0-0.2); Basophils % (A) 0 %; CH 27.8; CHCM 32.4; Eosinophils # (A) 0.5 k/uL (0-0.7); Eosinophils % (A) 4 %; HCT 40.9 % (39.0-53.0); HDW 2.32; HGB 13.1 gm/dL (13.0-17.5); Luc # (Auto) 0.42; Luc % (Auto) 3; Lymphocytes # (A) 2.4 k/uL (1.0-4.8); Lymphocytes % (A) 17 %; MCH 27.7 pg (25.0-35.0); MCHC 32.1 g/dL (31.0-37.0); MCV 86.3 fL (80.0-100.0); Mean Platelet Volume 7.8; Monocytes % (A) 7 %; Neutrophils % (A) 70 %; RBC 4.74 m/uL (4.30-5.90); RDW 13.9 % (11.5-15.5); WBC 14.3 k/uL (3.8-10.6); WBC (Perox) 14.55
[2017-01-21] MEDS ORDERED: LOSARTAN 50 MG TAB PO SCH (09:00)
[2017-01-21] MEDS: amLODIPine 10 MG TAB PO SCH (09:05)
[2017-01-21] MEDS: ASPIRIN 81 MG CHEW PO SCH (09:05)
[2017-01-21] MEDS: TICAGRELOR 90 MG TAB PO SCH (09:06)
[2017-01-21] MEDS: PANTOPRAZOLE 40 MG TABLET PO SCH (09:06)
[2017-01-21] MEDS: METOPROLOL TARTRATE 12.5 MG TAB PO SCH (09:07)
--- NOTE | 2017-01-21 09:19 | P.PN ---
Subjective Principal diagnosis: Inferior STEMI This is a 61-year-old gentleman who presented to the hospital with an acute inferior wall myocardial infarction. He underwent angioplasty with stenting of right coronary artery. Echocardiogram with Doppler study revealed an ejection fraction of 50-55%. Patient was seen and examined on the telemetry unit today, denies any chest pain or difficulty in breathing. Has been up ambulating without any difficulty. Blood pressure 124/80 with a heart rate in the 60s. Patient will be discharged home today. A follow-up appointment will be made with Dr. VC Renee in the office post discharge. Objective - Vital Signs Vital signs: Vital Signs Temp 97.0 F L 01/21/17 08:10 Pulse 67 01/21/17 08:10 Resp 18 01/21/17 08:10 BP 124/80 01/21/17 08:10 Pulse Ox 99 01/21/17 08:10 Intake & Output 01/20/17 01/21/17 01/21/17 18:59 06:59 18:59 Intake Total 1060 360 Balance 1060 360 Weight 85 kg Intake: Oral 1060 360 Other: Voiding Method Toilet Toilet Urinal Urinal # Voids 1 0 # Bowel Movements 1 - Exam PHYSICAL EXAMINATION: HEENT: Head is atraumatic, normocephalic. Pupils equal, round. Neck is supple. There is no elevated jugular venous pressure. HEART EXAMINATION: Heart S1, S2 normal. No murmur or gallop heard. CHEST EXAMINATION: Lungs are clear with diminished air entry to bilateral bases. ABDOMEN: Soft, nontender. Bowel sounds are heard. No organomegaly noted. EXTREMITIES: 2+ peripheral pulses with no evidence of peripheral edema and no calf tenderness noted. NEUROLOGIC patient is awake, alert and oriented -3. . - Labs CBC & Chem 7: 01/21/17 05:45 01/21/17 05:45 Labs: Abnormal Lab Results - Last 24 Hours (Table) 01/21/17 01/21/17 Range/Units 05:45 05:45 WBC 14.3 H (3.8-10.6) k/uL Neutrophils # 10.0 H (1.3-7.7) k/uL BUN 22 H (9-20) mg/dL Glucose 100 H (74-99) mg/dL Assessment and Plan (1) ST elevation (STEMI) myocardial infarction involving right coronary artery Status: Acute (2) HTN (hypertension) Status: Acute (3) Hyperlipemia Status: Acute (4) S/P right coronary artery (RCA) stent placement Status: Acute Plan: From cardiology's perspective, patient may be able to be discharged home today. We will make him a follow-up appointment with Dr. VC janet lee in the office in one week. Patient be discharged home on aspirin 81 mg daily, Lipitor 80 mg daily, Cozaar 50 mg daily, metoprolol tartrate half milligrams one tablet by mouth twice a day, Norvasc 10 mg daily, Brilinta 90 mg one tablet by mouth twice a day, and sublingual nitroglycerin as needed for chest pain. The patient has been provided prescriptions for the above medications, he did receive 1 free month of Brilinta. DNP note has been reviewed, I agree with a documented findings and plan of care. Patient was seen and examined.
[2017-01-21] MEDS: SODIUM CHLORIDE 0.9% 1,000 ML IV SCH (09:59)
[2017-01-21 11:18] VITALS: BP 175/72; PULSE 69; TEMP 96.7
--- NOTE | 2017-01-21 13:46 | P.DS ---
Providers Date of admission: 01/18/17 12:56 Attending physician: Vern Dixon Consults: 01/18/17 14:00 Consult Physician Routine Consulting Provider: [facility] Consult Reason/Comments: Post Interventional patient Do you want consulting provider notified?: Already Contacted Primary care physician: Marti Townsend Hospital Course: 61 gentleman is admitted to the hospital with chest pain. Initial EKG showed STEMI in the inferior leads. Patient was noted to have an RCA lesion is status post drug-eluting stent placement. Was monitored in-house for 48 hours no rhythm abnormalities were noted. Patient is discharged home in a stable condition. - Exam Physical exam Gen. appearance oriented 3 in no distress Neck is supple no JVD Lungs good air entry clear to auscultation no rhonchi or wheezing Heart S1-S2 heard regular rate and rhythm no murmurs appreciated Abdomen is soft nontender no organomegaly bowel sounds are intact Neurologically cranial nerves II-12 grossly intact no focal motor or sensory deficits noted Skin no abnormalities appreciated Assessment and Plan Plan: #1 CAD status post drug-eluting stent placement to the RCA admitted with STEMI #2 essential hypertension that is slightly not well-controlled . #3 dyslipidemia Remote history of tobacco use. Quit 2 months ago. Patient Condition at Discharge: Fair Plan - Discharge Summary New Discharge Prescriptions: Aspirin [Adult Low Dose Aspirin EC] 81 mg PO HS #30 tablet. Aspirin 81 mg PO DAILY #30 chew Atorvastatin [Lipitor] 80 mg PO HS #30 tab Losartan [Cozaar] 50 mg PO DAILY #30 tab Metoprolol Tartrate [Lopressor] 12.5 mg PO BID #60 tab Nitroglycerin Sl Tabs [Nitrostat] 0.4 mg SUBLINGUAL Q5M PRN #25 tab PRN Reason: Chest Pain Ticagrelor [Brilinta] 90 mg PO BID #60 tab amLODIPine [Norvasc] 10 mg PO DAILY #30 tab Discharge Medication List Naproxen Sodium [Aleve] 220 mg PO HS PRN 01/18/17 [History] Stool Softener 1 tab PO DAILY PRN 01/18/17 [History] Aspirin 81 mg PO DAILY #30 chew 01/21/17 [Rx] Aspirin [Adult Low Dose Aspirin EC] 81 mg PO HS #30 tablet. 01/21/17 [Rx] Atorvastatin [Lipitor] 80 mg PO HS #30 tab 01/21/17 [Rx] Losartan [Cozaar] 50 mg PO DAILY #30 tab 01/21/17 [Rx] Metoprolol Tartrate [Lopressor] 12.5 mg PO BID #60 tab 01/21/17 [Rx] Nitroglycerin Sl Tabs [Nitrostat] 0.4 mg SUBLINGUAL Q5M PRN #25 tab 01/21/17 [Rx ] Ticagrelor [Brilinta] 90 mg PO BID #60 tab 01/21/17 [Rx] amLODIPine [Norvasc] 10 mg PO DAILY #30 tab 01/21/17 [Rx] Follow up Appointment(s)/Referral(s): Marti Townsend MD [Primary Care Provider] - 01/27/17 10:15 am Xenia Renee MD [STAFF PHYSICIAN] - 01/28/17 3:45 pm Patient Instructions/Handouts: After Heart Catheterization - Foreign Agent, Left Heart Catheterization (DC), Heart Catheterization (DC) Activity/Diet/Wound Care/Special Instructions: *occupational therapist's assistant Vincent parham from [facility] at time of discharge* Discharge Disposition: HOME SELF-CARE
== END 2017-01-21 12:18 | disposition home or self-care (01) | DRG 247 ==
LOC: EC 12:18 → 6ICU 12:56 → 6SEL 01-19 20:57
PROVIDERS: ADMIT Hospitalist; ATTEND Hospitalist
PROC: B2111ZZ Fluoroscopy of Multiple Coronary Arteries using Low Osmolar Contrast (ICD-10-PCS; principal; 2017-01-18 12:31)
PROC: 4A023N7 Measurement of Cardiac Sampling and Pressure, Left Heart, Percutaneous Approach (ICD-10-PCS; principal; 2017-01-18 12:31)
PROC: 027034Z Dilation of Coronary Artery, One Artery with Drug-eluting Intraluminal Device, Percutaneous Approach (ICD-10-PCS; 2017-01-18 12:31)
DX: I21.19 ST elevation (STEMI) myocardial infarction involving other coronary artery of inferior wall (principal); I25.82 Chronic total occlusion of coronary artery; I11.9 Hypertensive heart disease without heart failure; E78.5 Hyperlipidemia, unspecified; E66.9 Obesity, unspecified; D64.9 Anemia, unspecified; F41.9 Anxiety disorder, unspecified; H91.90 Unspecified hearing loss, unspecified ear; I25.10 Atherosclerotic heart disease of native coronary artery without angina pectoris; I51.7 Cardiomegaly; M19.90 Unspecified osteoarthritis, unspecified site; Z68.31 Body mass index [BMI] 31.0-31.9, adult; Z79.82 Long term (current) use of aspirin; Z79.899 Other long term (current) drug therapy; Z82.49 Family history of ischemic heart disease and other diseases of the circulatory system; Z86.73 Personal history of transient ischemic attack (TIA), and cerebral infarction without residual deficits; Z87.891 Personal history of nicotine dependence; Z98.2 Presence of cerebrospinal fluid drainage device; Z88.0 Allergy status to penicillin
CPT/HCPCS: 36415; 71010; 74176; 80048; 80051; 80053; 80306; 81003; 82550; 82553; 83735; 84484; 85025; 85610; 85730; 93005; 93306; 93458; 94760; 96374; 96375; 99291

== ENCOUNTER 2017-12-18 02:17 | Emergency (ER) | payer MEDICARE ==
[2017-12-18 02:28] VITALS: RESP 18
--- NOTE | 2017-12-18 02:43 | ED ---
General Adult HPI - General Chief complaint: Chest Pain Stated complaint: chest pain Time Seen by Provider: 12/18/17 02:32 Source: patient, EMS, RN notes reviewed, old records reviewed Mode of arrival: EMS Limitations: no limitations - History of Present Illness Initial comments: This is a 62-year-old male the ER for evaluation. Patient's S evaluation of chest pain. Patient has extensive medical history with positive cardiac history. Patient states that chest pain and increasing swelling. His nose today. Patient did take her methadone will be tonight felt into his legs with some pain chest pain shortness of breath. Patient also has history of COPD and continues to smoke. No recent sick contacts or recent travel history. Patient denies any recent change in medications. - Related Data Home Medications Medication Instructions Recorded Confirmed Naproxen Sodium [Aleve] 220 mg PO HS PRN 01/18/17 01/18/17 Stool Softener 1 tab PO DAILY PRN 01/18/17 Previous Rx's Medication Instructions Recorded Aspirin 81 mg PO DAILY #30 chew 01/21/17 Aspirin [Adult Low Dose Aspirin EC] 81 mg PO HS #30 tablet.dr 01/21/17 Atorvastatin [Lipitor] 80 mg PO HS #30 tab 01/21/17 Losartan [Cozaar] 50 mg PO DAILY #30 tab 01/21/17 Metoprolol Tartrate [Lopressor] 12.5 mg PO BID #60 tab 01/21/17 Nitroglycerin Sl Tabs [Nitrostat] 0.4 mg SUBLINGUAL Q5M PRN #25 tab 01/21/17 Ticagrelor [Brilinta] 90 mg PO BID #60 tab 01/21/17 amLODIPine [Norvasc] 10 mg PO DAILY #30 tab 01/21/17 Allergies Allergy/AdvReac Type Severity Reaction Status Date / Time Penicillins Allergy Swelling Verified 01/18/17 17:46 Review of Systems ROS Statement: Those systems with pertinent positive or pertinent negative responses have been documented in the HPI. ROS Other: All systems not noted in ROS Statement are negative. Past Medical History Past Medical History: Coronary Artery Disease (CAD), Chest Pain / Angina, Hearing Disorder / Deafness, Hyperlipidemia, Hypertension, Myocardial Infarction (OK), Osteoarthritis (OA) Last Myocardial Infarction Date:: t History of Any Multi-Drug Resistant Organisms: None Reported Past Surgical History: Heart Catheterization With Stent, Orthopedic Surgery Additional Past Surgical History / Comment(s): Lithotripsy Past Anesthesia/Blood Transfusion Reactions: No Reported Reaction, Motion Sickness Date of Last Stent Placement:: t Past Psychological History: Anxiety Smoking Status: Current every day smoker Past Alcohol Use History: None Reported Past Drug Use History: Marijuana - Past Family History Father History Unknown: Yes Family Medical History: Cancer, Coronary Artery Disease (CAD), Dementia, Diabetes Mellitus, Prostate Disorder Mother History Unknown: Yes Family Medical History: Diabetes Mellitus, Osteoarthritis (OA) General Exam Limitations: no limitations General appearance: alert, in no apparent distress Head exam: Present: atraumatic, normocephalic, normal inspection Eye exam: Present: normal appearance, PERRL, EOMI. Absent: scleral icterus, conjunctival injection, periorbital swelling ENT exam: Present: normal exam, mucous membranes moist Neck exam: Present: normal inspection. Absent: tenderness, meningismus, lymphadenopathy Respiratory exam: Present: normal lung sounds bilaterally. Absent: respiratory distress, wheezes, rales, rhonchi, stridor Cardiovascular Exam: Present: regular rate, normal rhythm, normal heart sounds. Absent: systolic murmur, diastolic murmur, rubs, gallop, clicks GI/Abdominal exam: Present: soft, normal bowel sounds. Absent: distended, tenderness, guarding, rebound, rigid Extremities exam: Present: normal inspection, full ROM, normal capillary refill. Absent: tenderness, pedal edema, joint swelling, calf tenderness Back exam: Present: normal inspection Neurological exam: Present: alert, oriented X3, CN II-XII intact Psychiatric exam: Present: normal affect, normal mood Skin exam: Present: warm, dry, intact, normal color. Absent: rash Course Vital Signs 12/18/17 12/18/17 12/18/17 02:20 03:19 03:34 Temperature 98 F Pulse Rate 56 L 49 L 49 L Respiratory 18 18 Rate Blood Pressure 172/58 161/65 O2 Sat by Pulse 98 98 Oximetry 12/18/17 12/18/17 12/18/17 03:36 03:54 06:56 Temperature 97.8 F Pulse Rate 48 L 51 L 55 L Respiratory 18 Rate Blood Pressure 140/48 135/68 O2 Sat by Pulse 100 98 Oximetry - Reevaluation(s) Reevaluation #1: Patient's family does not want to stay in the hospital, therefore troponins checked which is negative 2. Patient's feeling better without chest pain, states all her symptoms are from taking too marijuana brownies earlier today EKG Findings - EKG Comments: EKG Findings:: EKG shows normal sinus bradycardia rate of 54, MD 172, QRS 96, QTc 422 Medical Decision Making - Medical Decision Making 60 female the ER with atypical chest pain. Patient's troponin and EKG which are negative, troponin negative 2, patient is currently a symptomatically refusing to stay for observation. Patient will be discharged home - Lab Data Result diagrams: 12/18/17 02:35 12/18/17 02:35 Lab Results 12/18/17 12/18/17 12/18/17 Range/Units 02:35 02:35 02:35 WBC 9.2 (3.8-10.6) k/uL RBC 4.96 (4.30-5.90) m/uL Hgb 13.3 (13.0-17.5) gm/dL Hct 42.7 (39.0-53.0) % MCV 86.0 (80.0-100.0) fL MCH 26.8 (25.0-35.0) pg MCHC 31.2 (31.0-37.0) g/dL RDW 14.2 (11.5-15.5) % Plt Count 277 (150-450) k/uL Neutrophils % 72 % Lymphocytes % 15 % Monocytes % 7 % Eosinophils % 4 % Basophils % 1 % Neutrophils # 6.6 (1.3-7.7) k/uL Lymphocytes # 1.4 (1.0-4.8) k/uL Monocytes # 0.6 (0-1.0) k/uL Eosinophils # 0.3 (0-0.7) k/uL Basophils # 0.1 (0-0.2) k/uL PT (9.0-12.0) sec INR (<1.2) APTT (22.0-30.0) sec D-Dimer (<0.60) mg/L FEU Sodium 145 (137-145) mmol/L Potassium 4.5 (3.5-5.1) mmol/L Chloride 106 (98-107) mmol/L Carbon Dioxide 26 (22-30) mmol/L Anion Gap 13 mmol/L BUN 23 H (9-20) mg/dL Creatinine 1.20 (0.66-1.25) mg/dL Est GFR (MDRD) Af Amer >60 (>60 ml/min/1.73 sqM) Est GFR (MDRD) Non-Af >60 (>60 ml/min/1.73 sqM) Glucose 130 H (74-99) mg/dL Calcium 10.0 (8.4-10.2) mg/dL Magnesium 1.8 (1.6-2.3) mg/dL Total Bilirubin 0.3 (0.2-1.3) mg/dL AST 33 (17-59) U/L ALT 39 (21-72) U/L Alkaline Phosphatase 93 (38-126) U/L Total Creatine Kinase 114 (55-170) U/L CK-MB (CK-2) 0.8 (0.0-2.4) ng/mL CK-MB (CK-2) Rel Index 0.7 Troponin I <0.012 (0.000-0.034) ng/mL NT-Pro-B Natriuret Pep pg/mL Total Protein 7.7 (6.3-8.2) g/dL Albumin 4.4 (3.5-5.0) g/dL Lipase 77 (23-300) U/L 12/18/17 12/18/17 12/18/17 Range/Units 02:35 02:35 05:44 WBC (3.8-10.6) k/uL RBC (4.30-5.90) m/uL Hgb (13.0-17.5) gm/dL Hct (39.0-53.0) % MCV (80.0-100.0) fL MCH (25.0-35.0) pg MCHC (31.0-37.0) g/dL RDW (11.5-15.5) % Plt Count (150-450) k/uL Neutrophils % % Lymphocytes % % Monocytes % % Eosinophils % % Basophils % % Neutrophils # (1.3-7.7) k/uL Lymphocytes # (1.0-4.8) k/uL Monocytes # (0-1.0) k/uL Eosinophils # (0-0.7) k/uL Basophils # (0-0.2) k/uL PT 10.4 (9.0-12.0) sec INR 1.1 (<1.2) APTT 22.8 (22.0-30.0) sec D-Dimer 0.34 (<0.60) mg/L FEU Sodium (137-145) mmol/L Potassium (3.5-5.1) mmol/L Chloride (98-107) mmol/L Carbon Dioxide (22-30) mmol/L Anion Gap mmol/L BUN (9-20) mg/dL Creatinine (0.66-1.25) mg/dL Est GFR (MDRD) Af Amer (>60 ml/min/1.73 sqM) Est GFR (MDRD) Non-Af (>60 ml/min/1.73 sqM) Glucose (74-99) mg/dL Calcium (8.4-10.2) mg/dL Magnesium (1.6-2.3) mg/dL Total Bilirubin (0.2-1.3) mg/dL AST (17-59) U/L ALT (21-72) U/L Alkaline Phosphatase (38-126) U/L Total Creatine Kinase (55-170) U/L CK-MB (CK-2) (0.0-2.4) ng/mL CK-MB (CK-2) Rel Index Troponin I <0.012 (0.000-0.034) ng/mL NT-Pro-B Natriuret Pep 822 pg/mL Total Protein (6.3-8.2) g/dL Albumin (3.5-5.0) g/dL Lipase (23-300) U/L - Radiology Data Radiology results: report reviewed (Chest x-ray negative for acute disease), image reviewed Disposition Clinical Impression: Atypical chest pain, Accidental drug overdose Disposition: HOME SELF-CARE Condition: Good Instructions: Chest Pain (ED), Medicinal Use of Cannabis (ED) Referrals: Marti Townsend MD [Primary Care Provider] - 1-2 days
[2017-12-18 02:47] LABS: Basophils # (A) 0.1 k/uL (0-0.2); Basophils % (A) 1 %; Eosinophils # (A) 0.3 k/uL (0-0.7); Eosinophils % (A) 4 %; HCT 42.7 % (39.0-53.0); HGB 13.3 gm/dL (13.0-17.5); Lymphocytes # (A) 1.4 k/uL (1.0-4.8); Lymphocytes % (A) 15 %; MCH 26.8 pg (25.0-35.0); MCHC 31.2 g/dL (31.0-37.0); Mean Platelet Volume 7.4; Monocytes # (A) 0.6 k/uL (0-1.0); Monocytes % (A) 7 %; Neutrophils # (A) 6.6 k/uL (1.3-7.7); Neutrophils % (A) 72 %; Platelet Count 277 k/uL (150-450); RBC 4.96 m/uL (4.30-5.90); RDW 14.2 % (11.5-15.5); WBC 9.2 k/uL (3.8-10.6)
--- NOTE | 2017-12-18 02:58 | XR ---
EXAMINATION TYPE: XR chest 2V DATE OF EXAM: 12/18/2017 COMPARISON: 01/18/2017 HISTORY: Chest pain TECHNIQUE: Frontal and lateral views of the chest are obtained. FINDINGS: Heart and mediastinum are normal. Lungs are clear. Costophrenic angles are clear. There ar e no hilar masses. There is no pleural effusion. Bony thorax is intact. IMPRESSION: Normal chest. No change.
[2017-12-18 02:59] LABS: ALT 39 U/L (21-72); AST 33 U/L (17-59); Albumin 4.4 g/dL (3.5-5.0); Alkaline Phosphatase 93 U/L (38-126); Anion Gap 13 mmol/L; Blood Urea Nitrogen 23 mg/dL (9-20); Carbon Dioxide 26 mmol/L (22-30); Chloride 106 mmol/L (98-107); D-Dimer 0.34 mg/L FEU (<0.60); Glucose 130 mg/dL (74-99); INR 1.1 (<1.2); Lipase 77 U/L (23-300); Magnesium 1.8 mg/dL (1.6-2.3); Partial Thromboplastin Time 22.8 sec (22.0-30.0); Potassium 4.5 mmol/L (3.5-5.1); Prothrombin Time 10.4 sec (9.0-12.0); Sodium 145 mmol/L (137-145); Total Bilirubin 0.3 mg/dL (0.2-1.3); Total Protein 7.7 g/dL (6.3-8.2)
[2017-12-18 03:10] LABS: Creatine Kinase 114 U/L (55-170)
[2017-12-18] MEDS ORDERED: IPRATROPIUM-ALBUTEROL 3 ML NEB INHALATION STA (03:15)
[2017-12-18 03:23] LABS: Creatine Kinase MB 0.8 ng/mL (0.0-2.4); Troponin I <0.012 ng/mL (0.000-0.034)
[2017-12-18] MEDS ORDERED: FUROSEMIDE 10 MG/ML 4 ML VIAL IV STA (04:26)
[2017-12-18 07:00] VITALS: BP 135/68; PULSE 55; TEMP 97.8
== END 2017-12-18 06:56 | disposition home or self-care (01) ==
LOC: EC 02:17
DX: T40.3X1A Poisoning by methadone, accidental (unintentional), initial encounter (principal); R07.89 Other chest pain; I25.2 Old myocardial infarction; J44.9 Chronic obstructive pulmonary disease, unspecified; F17.200 Nicotine dependence, unspecified, uncomplicated; Z82.49 Family history of ischemic heart disease and other diseases of the circulatory system; Z88.0 Allergy status to penicillin; Z95.5 Presence of coronary angioplasty implant and graft
CPT/HCPCS: 36415; 94640; 93005; 85379; 83880; 80053; 82550; 82553; 83690; 83735; 84484; 85025; 85610; 85730; 71046; 99285; 96374; J1940

== ENCOUNTER → 2018-09-22 | Outpatient (CLI) | payer MEDICARE ==
[2018-09-22 13:03] LABS: Basophils # (A) 0.1 k/uL (0-0.2); Basophils % (A) 1 %; Eosinophils # (A) 0.3 k/uL (0-0.7); Eosinophils % (A) 4 %; HCT 40.1 % (39.0-53.0); HGB 12.9 gm/dL (13.0-17.5); Lymphocytes # (A) 2.8 k/uL (1.0-4.8); Lymphocytes % (A) 29 %; MCH 27.7 pg (25.0-35.0); MCHC 32.2 g/dL (31.0-37.0); Mean Platelet Volume 7.9; Monocytes # (A) 0.6 k/uL (0-1.0); Monocytes % (A) 6 %; Neutrophils # (A) 5.5 k/uL (1.3-7.7); Neutrophils % (A) 57 %; Platelet Count 228 k/uL (150-450); RBC 4.66 m/uL (4.30-5.90); RDW 14.8 % (11.5-15.5); WBC 9.5 k/uL (3.8-10.6)
[2018-09-22 19:01] LABS: LDL Cholesterol,Calculated 68.2 mg/dL (0.0-131.0); VLDL Calculation 20.8 mg/dL (5.00-40.00)
[2018-09-22 19:02] LABS: Albumin 4.3 g/dL (3.80-4.90); Albumin/Globulin Ratio 1.79 (1.20-2.10); Calcium 9.5 mg/dL (8.7-10.3); Globulin 2.4 g/dL (2.1-3.7); Potassium 5.2 mmol/L (3.5-5.5); Total Bilirubin 0.4 mg/dL (0.2-1.2); Total Protein 6.7 g/dL (6.2-8.2)
[2018-09-23 13:40] LABS: APTT 38 Sec(s) (<43); Dilute Russell Viper Venom 37 Sec(s) (<44)
== END ==
LOC: LABWHC1 11:52
PROVIDERS: ATTEND Family Medicine
DX: I10 Essential (primary) hypertension (principal); R21 Rash and other nonspecific skin eruption
CPT/HCPCS: 36415; 80053; 80061; 85025; 85613; 85730

== ENCOUNTER → 2018-09-29 | Outpatient (CLI) | payer MEDICARE ==
--- NOTE | 2018-09-29 10:54 | CT ---
EXAMINATION TYPE: CT chest wo con DATE OF EXAM: 09/29/2018 COMPARISON: Radiograph 12/18/2017 HISTORY: 63-year-old male Chest mass. Complaining of cough and difficulty breathing for 4 months. TECHNIQUE: Contiguous axial scanning of the chest without IV contrast. Coronal and sagittal reconstru ctions performed. CT DLP: 537 mGycm Automated exposure control for dose reduction was used. FINDINGS: Heart normal size without pericardial effusion. Coronary vessel calcifications are present in remarka ble for coronary artery disease. Aorta normal caliber with conventional branching anatomy. Scattered nonenlarged mediastinal and bilateral axillary lymph nodes are present. No thoracic lymphad enopathy by CT size criteria. Evaluation of the lungs shows moderate centrilobular emphysema in the upper lungs with some scattered strandy areas of atelectasis or scarring. No consolidation or pleural effusion. Tiny hiatal hernia. Bones: No osseous destructive process. IMPRESSION: 1. COPD WITH MODERATE UPPER LUNG EMPHYSEMA. 2. NO ACUTE PULMONARY PROCESS OR EVIDENCE FOR CHEST MASS.
== END ==
LOC: RADCTMAIN 09:45
PROVIDERS: ATTEND Family Medicine
DX: J43.9 Emphysema, unspecified (principal)
CPT/HCPCS: 71250

== ENCOUNTER → 2022-04-25 | Outpatient (CLI) | payer MEDICARE ==
[2022-04-25 21:55] LABS: Anion Gap 10.8 mmol/L (10.00-18.00); BUN/Creat Ratio 14.37 Ratio (12.00-20.00); Blood Urea Nitrogen 21.7 mg/dL (9.0-27.0); Calcium 10.1 mg/dL (8.7-10.3); Carbon Dioxide 24.6 mmol/L (20.0-27.5); Non-African American GFR(CKD) 47.4 (60.0-200.0); Potassium 4.8 mmol/L (3.5-5.5)
== END | disposition home or self-care (01) ==
LOC: LABWHC1 14:03
PROVIDERS: ATTEND Internal Medicine Interventional Cardiology
DX: Z00.00 Encounter for general adult medical examination without abnormal findings (principal)
CPT/HCPCS: 36415; 80048

== ENCOUNTER 2022-09-03 09:11 | Day surgery (SDC) | payer MEDICARE ==
[2022-08-29 15:28] VITALS: BMI 34.7
[~2022-09-03 09:11] MED LIST: LACTATED RINGERS 1,000 ML IV SCH; LIDOCAINE 1% (10MG/ML) FOR IV START INTRADERMA PRN
[2022-09-03 10:30] VITALS: TEMP 97.7
[2022-09-03] MEDS ORDERED: LIDOCAINE 2% INJ 20 MG/ML (2 ML VIAL) ONE (11:02)
[2022-09-03] MEDS ORDERED: PROPOFOL 10 MG/ML 20 ML VIAL IV ONE (11:02)
--- NOTE | 2022-09-03 11:21 | P.PCN ---
Date of Procedure: 09/03/22 Procedure(s) Performed: BRIEF HISTORY: Patient is a 67-year-old pleasant white male scheduled for an elective colonoscopy as a part of screening for colon cancer and family history of colon cancer. His dad was diagnosed with colon cancer at age 58. PROCEDURE PERFORMED: Colonoscopy. PREOPERATIVE DIAGNOSIS: Screening for colon cancer/family history of colon cancer. IV sedation per Anesthesia. PROCEDURE: After informed consent was obtained, the patient, was brought into the endoscopy unit. IV sedation was administered by Anesthesia under continuous monitoring. Digital rectal examination was normal. Initially the Olympus CF-160 flexible video colonoscope was then inserted in the rectum, gradually advanced into the cecum without any difficulty. Careful examination was performed as the scope was gradually being withdrawn. Ileocecal valve and the appendiceal orifice were visualized and appeared normal. Prep was excellent. Mucosa of the cecum, ascending colon, transverse colon, descending colon, sigmoid colon, and rectum appeared normal. Retroflexion was performed in the rectum and no lesions were seen. The patient tolerated the procedure well. IMPRESSION: Normal-appearing colon from rectum to cecum with no evidence of colorectal neoplasia . RECOMMENDATIONS: Findings of this examination were discussed with the patient as well as a family. He was advised to have a repeat colonoscopy in 5 years because of the family history of colon cancer.
[2022-09-03 11:27] VITALS: RESP 16
[2022-09-03 11:43] VITALS: BP 115/94; PULSE 49
== END 2022-09-03 11:52 | disposition home or self-care (01) ==
LOC: ORWHC2ENDO 09:11
PROVIDERS: ATTEND Internal Medicine Gastroenterology
DX: Z12.11 Encounter for screening for malignant neoplasm of colon (principal); I25.10 Atherosclerotic heart disease of native coronary artery without angina pectoris; I10 Essential (primary) hypertension; E78.5 Hyperlipidemia, unspecified; G47.33 Obstructive sleep apnea (adult) (pediatric); I25.2 Old myocardial infarction; G40.909 Epilepsy, unspecified, not intractable, without status epilepticus; M54.9 Dorsalgia, unspecified; Z79.82 Long term (current) use of aspirin; Z79.899 Other long term (current) drug therapy; Z88.0 Allergy status to penicillin; Z80.0 Family history of malignant neoplasm of digestive organs
CPT/HCPCS: G0105; J2704; J2001; 45378

== ENCOUNTER → 2023-03-05 | Outpatient (CLI) | payer MEDICARE ==
--- NOTE | 2023-03-05 13:35 | US ---
EXAMINATION TYPE: US renal artery duplex complete DATE OF EXAM: 03/05/2023 COMPARISON: NONE CLINICAL INDICATION: Male, 67 years old with history of ACUTE CKD INJURY N17.9; MEASUREMENTS: RENAL SIZE: Rt Kidney: 10.8 x 5.3 x 4.5cm Lt Kidney: 12.6 x 5.7 x 4.6cm RESISTANCE INDEX Right: 0.69 Left: 0.65 RA/AO RATIO (< 3.5 ) Right: 1.7 Left: 1.8 RA VELOCITY ( < 180 cm/s) Right: 180.4cm/s Left: 196.7cm/s Theatre Manager notes:Technical limitations due to patient's body habitus and large amount of overlying bowel content. Abdominal aorta obscured. Perinephric fat noted anterior bilateral kidneys. No eviden ce of hydronephrosis. Limited evaluation bilateral renal arteries, possibly mildly elevated velocitie s proximal left renal artery IMPRESSION: Suboptimal exam due to technical limitations of body habitus and overlying bowel content. Unable to e xclude renal artery stenosis on the left. Further CT angiography evaluation is recommended.
== END | disposition home or self-care (01) ==
LOC: RADUSWWP 07:56
DX: N17.9 Acute kidney failure, unspecified (principal)
CPT/HCPCS: 93975

== ENCOUNTER → 2023-04-21 | Outpatient (CLI) | payer MEDICARE ==
[2023-04-21 20:14] LABS: ALT 37 U/L (10-49); AST 29 U/L (14-35); Albumin 3.9 d/dL (3.8-4.9); Alkaline Phosphatase 61 U/L (41-126); BUN/Creat Ratio 20.12 Ratio (12.00-20.00); Blood Urea Nitrogen 32.2 mg/dL (9.0-27.0); Chloride 105 mmol/L (96-109); Globulin 2.6 d/dL (1.6-3.3); Glucose 157 mg/dL (70-110); Potassium 4.8 mmol/L (3.5-5.5); Sodium 140 mmol/L (135-145); Total Bilirubin 0.3 mg/dL (0.3-1.2); Total Protein 6.5 d/dL (6.2-8.2)
== END | disposition home or self-care (01) ==
LOC: LABWHC1 14:23
PROVIDERS: ATTEND Internal Medicine
DX: I77.6 Arteritis, unspecified (principal); N17.9 Acute kidney failure, unspecified; R79.89 Other specified abnormal findings of blood chemistry; R80.9 Proteinuria, unspecified
CPT/HCPCS: 36415; 80053

== ENCOUNTER → 2023-05-20 | Outpatient (CLI) | payer MEDICARE ==
[2023-05-20 15:19] LABS: Creatinine,Urine Random 110.8 mg/dL; Protein/Creatinine Ratio,Urine 1.498
[2023-05-20 17:31] LABS: BUN/Creat Ratio 18.75 Ratio (12.00-20.00); Calcium 9.8 mg/dL (8.7-10.3); Carbon Dioxide 22.2 mmol/L (21.6-31.8); Chloride 105 mmol/L (96-109); Glucose 119 mg/dL (70-110); Potassium 4.4 mmol/L (3.5-5.5); Sodium 140 mmol/L (135-145)
[2023-05-20 18:03] LABS: HCT 42.9 % (39.6-50.0); HGB 13.8 d/dL (13.0-17.0); MCH 29.1 pg (27.0-32.0); MCHC 32.2 d/dL (32.0-37.0); MCV 90.3 FL (80.0-97.0); NRBC Per 100 WBC 0 X 10*3/uL (0.00-0.01); Platelet Count 282 X 10*3/uL (140-440); RBC 4.75 X 10*6/uL (4.40-5.60); RDW 13.5 % (11.5-14.5); WBC 15.55 X 10*3/uL (4.50-10.00)
[2023-05-20 21:40] LABS: Appearance,Urine Clear (Clear); Bilirubin,Urine Negative (Negative); Blood,Urine Negative (Negative); Color,Urine Yellow (Yellow); Ketones,Urine Negative (Negative); Nitrite,Urine Negative (Negative); Specific Gravity,Urine 1.021 (1.001-1.030); Urobilinogen,Urine 0.2 E.U./DL
[2023-05-20 21:43] LABS: Bacteria,Urine None Seen (None Seen)
== END | disposition home or self-care (01) ==
LOC: LABWHC1 11:06
PROVIDERS: ATTEND Internal Medicine
DX: N17.9 Acute kidney failure, unspecified (principal); I77.6 Arteritis, unspecified; R79.89 Other specified abnormal findings of blood chemistry; R80.9 Proteinuria, unspecified
CPT/HCPCS: 36415; 80048; 81001; 82570; 84156; 85027; 86038; 86039; 86160

== ENCOUNTER → 2023-07-02 | Outpatient (CLI) | payer MEDICARE ==
[2023-07-02 21:02] LABS: Blood Urea Nitrogen 21.6 mg/dL (9.0-27.0); Carbon Dioxide 25.6 mmol/L (21.6-31.8); Chloride 106 mmol/L (96-109); Glucose 107 mg/dL (70-110); Sodium 143 mmol/L (135-145)
== END | disposition home or self-care (01) ==
LOC: LABWHC1 15:34
PROVIDERS: ATTEND Internal Medicine
DX: I77.6 Arteritis, unspecified (principal); N17.8 Other acute kidney failure; R80.8 Other proteinuria; R79.89 Other specified abnormal findings of blood chemistry
CPT/HCPCS: 36415; 80048

== ENCOUNTER → 2023-09-30 | Outpatient (CLI) | payer MEDICARE ==
--- NOTE | 2023-10-02 06:25 | MR ---
EXAMINATION TYPE: MR hip RT wo con DATE OF EXAM: 09/30/2023 COMPARISON: CT abdomen and pelvis January 18, 2017. HISTORY: Right hip pain and limited movement for 5 months. Standard multiplanar, multisequence MRI departmental protocol Multiplanar, multisequence images of the pelvis focusing on the right hip were acquired without contr ast. FINDINGS: Moderate symmetric axial joint space loss and acetabular spurring within both hips. There i s asymmetric moderate size right hip joint effusion with some adjacent edema involving the deeper mus cles surrounding the right hip and extending anteriorly. Correlate to exclude recent pain injection. Prominent Subchondral cystic change involving the superior aspect of the acetabulum is seen. There is presumed labral tear. Femoral head shapes are maintained bilaterally. No serpiginous T1 signal to burns ggest avascular necrosis. No suspicious increased T2 signal or osseous edema in the femoral head. No groin hernia or adenopathy is present. Muscle bulk is symmetric and maintained. No suspicious bowel dilatation. No free fluid in the pelvis. Prostate gland is grossly unremarkable. IMPRESSION: Fairly moderate degenerative changes in both hips. Findings are more prominent in the rig ht hip with extensive superior subchondral cystic change. There is asymmetric moderate-sized right hi p joint effusion with edema throughout the surrounding muscles. Patient may benefit with joint aspira tion to further evaluate.
== END | disposition home or self-care (01) ==
LOC: RADMRIMAIN 14:10
PROVIDERS: ATTEND Family Medicine
DX: M16.0 Bilateral primary osteoarthritis of hip (principal); M25.451 Effusion, right hip

== ENCOUNTER → 2023-10-01 | Outpatient (CLI) | payer MEDICARE ==
[2023-10-02 02:07] LABS: Blood Urea Nitrogen 22.8 mg/dL (9.0-27.0); Calcium 9.8 mg/dL (8.7-10.3); Carbon Dioxide 23.6 mmol/L (21.6-31.8); Chloride 105 mmol/L (96-109); Glucose 104 mg/dL (70-110); Potassium 4.9 mmol/L (3.5-5.5); Sodium 140 mmol/L (135-145)
[2023-10-02 02:49] LABS: HCT 40.7 % (39.6-50.0); HGB 12.5 g/dL (13.0-17.0); MCH 27.4 pg (27.0-32.0); MCHC 30.7 g/dL (32.0-37.0); MCV 89.3 FL (80.0-97.0); Mean Platelet Volume 11.5 FL (9.5-12.2); NRBC Per 100 WBC 0 X 10*3/uL (0.00-0.01); Platelet Count 340 X 10*3/uL (140-440); RBC 4.56 X 10*6/uL (4.40-5.60); RDW 13.5 % (11.5-14.5); WBC 11.19 X 10*3/uL (4.50-10.00)
== END | disposition home or self-care (01) ==
LOC: LABWHC1 15:45
PROVIDERS: ATTEND Internal Medicine
DX: I77.6 Arteritis, unspecified (principal); N17.8 Other acute kidney failure; R79.89 Other specified abnormal findings of blood chemistry; R80.8 Other proteinuria
CPT/HCPCS: 36415; 80048; 85027

== ENCOUNTER → 2024-02-03 | Outpatient (CLI) | payer MEDICARE ==
[2024-02-04 02:51] LABS: HCT 44.2 % (39.6-50.0); HGB 13.5 g/dL (13.0-17.0); MCH 27.6 pg (27.0-32.0); MCHC 30.5 g/dL (32.0-37.0); MCV 90.4 FL (80.0-97.0); NRBC Per 100 WBC 0 X 10*3/uL (0.00-0.01); Platelet Count 335 X 10*3/uL (140-440); RBC 4.89 X 10*6/uL (4.40-5.60); RDW 13.8 % (11.5-14.5); WBC 15.32 X 10*3/uL (4.50-10.00)
[2024-02-04 03:17] LABS: ALT 25 U/L (10-49); AST 23 U/L (14-35); Albumin 4.3 g/dL (3.8-4.9); Albumin/Globulin Ratio 1.34 Ratio (1.60-3.17); Alkaline Phosphatase 104 U/L (41-126); BUN/Creat Ratio 13.12 Ratio (12.00-20.00); Carbon Dioxide 21.2 mmol/L (21.6-31.8); Chloride 105 mmol/L (96-109); Globulin 3.2 g/dL (1.6-3.3); Glucose 94 mg/dL (70-110); Potassium 5.2 mmol/L (3.5-5.5); Sodium 139 mmol/L (135-145); Total Bilirubin 0.3 mg/dL (0.3-1.2); Total Protein 7.5 g/dL (6.2-8.2)
== END | disposition home or self-care (01) ==
LOC: LABPAT 15:37
PROVIDERS: ATTEND Orthopaedic Surgery
DX: Z01.818 Encounter for other preprocedural examination (principal); M16.11 Unilateral primary osteoarthritis, right hip; R00.1 Bradycardia, unspecified
CPT/HCPCS: 80053; 83036; 85027; 85610; 85730; 86850; 86900; 86901; 87070; 93005

== ENCOUNTER 2024-02-12 05:47 | Day surgery (SDC) | payer MEDICARE ==
[~2024-02-12 05:47] MED LIST changes: -LACTATED RINGERS 1,000 ML IV SCH; -LIDOCAINE 1% (10MG/ML) FOR IV START INTRADERMA PRN; +ROPIVACAINE/EPI/CLONIDINE/KET 50 ML SYRINGE MISCELLANE PRN
[2024-02-12] MEDS ORDERED: TRANEXAMIC 1,000 MG/100ML-NACL 1,000 MG in SALINE 1 100ML.BAG IVPB PRN (06:00)
[2024-02-12] MEDS ORDERED: TRANEXAMIC 1,000 MG/100ML-NACL 1,000 MG in SALINE 1 100ML.BAG IV PRN (06:00)
[2024-02-12 06:49] LABS: Glucose,Whole Blood 127 mg/dL (70-110)
[2024-02-12] MEDS: LACTATED RINGERS 1,000 ML IV SCH (06:49)
[2024-02-12] MEDS ORDERED: HYDROmorphone 0.5 MG/0.5 ML SYRINGE IVP PRN ×4 (07:00→07:27)
[2024-02-12] MEDS: ONDANSETRON 4 MG/2 ML VIAL IVP PRN ×2 (07:11→11:28)
[2024-02-12] MEDS: ACETAMINOPHEN TAB 500 MG TAB PO PRN (07:11)
[2024-02-12] MEDS: oxyCODONE ER 10 MG TAB.ER.12H PO PRN (07:11)
[2024-02-12] MEDS: DOCUSATE 100 MG CAP PO PRN (07:11)
[2024-02-12] MEDS: FAMOTIDINE 20 MG/2 ML VIAL IVP PRN (07:12)
[2024-02-12] MEDS: KETOROLAC 15 MG/ML 1 ML VIAL IVP PRN (07:15)
[2024-02-12] MEDS: DEXAMETHASONE SOD PHOSPHATE 10 MG/ML 1 ML VIAL IV PRN (07:15)
[2024-02-12] MEDS: MIDAZOLAM 2 MG/2 ML VIAL IVP ONE (07:16)
[2024-02-12] MEDS: fentaNYL (PF) 50 MCG/ML 2 ML AMP IVP ONE (07:16)
[2024-02-12] MEDS: MIDAZOLAM 2 MG/2 ML VIAL IV PRN (07:18)
[2024-02-12] MEDS ORDERED: HYDROmorphone (PF) 1 MG/ML ONE (07:25)
[2024-02-12] MEDS ORDERED: fentaNYL (PF) 50 MCG/ML 2 ML AMP ONE (07:25)
[2024-02-12] MEDS ORDERED: DEXAMETHASONE SOD PHOSPHATE 4 MG/ML 1 ML VIAL ONE (07:25)
[2024-02-12] MEDS ORDERED: ROPIVACAINE 5 MG/ML 30 ML VIAL ONE (07:25)
[2024-02-12] MEDS ORDERED: GLYCOPYRROLATE 0.2 MG/ML 2 ML VIAL ONE (07:25)
[2024-02-12] MEDS ORDERED: ROCURONIUM 10 MG/ML (5 ML VIAL) IV ONE (07:25)
[2024-02-12] MEDS ORDERED: ePHEDrine 50 MG/ML 1 ML VIAL ONE (07:25)
[2024-02-12] MEDS ORDERED: NEOSTIGMINE 1 MG/ML 10 ML VIAL ONE (07:25)
[2024-02-12] MEDS ORDERED: SUCCINYLCHOLINE CHLORIDE 200 MG/10 ML VIAL IV ONE (07:25)
[2024-02-12] MEDS ORDERED: TRANEXAMIC 1,000 MG/100ML-NACL PREMIX BAG ONE (07:25)
[2024-02-12] MEDS ORDERED: PROPOFOL 10 MG/ML 20 ML VIAL IV ONE (07:25)
[2024-02-12] MEDS ORDERED: LIDOCAINE 1% INJ 10MG/ML (20 ML MDV) ONE (07:25)
[2024-02-12] MEDS ORDERED: MAGNESIUM HYDROXIDE 2,400 MG/30 ML CUP PO PRN (07:27)
[2024-02-12] MEDS ORDERED: NALOXONE 0.4 MG/ML 1 ML VIAL IV PRN (07:27)
[2024-02-12] MEDS ORDERED: ACETAMINOPHEN TAB 325 MG TAB PO PRN (07:27)
[2024-02-12] MEDS ORDERED: HYDROcodone/APAP 10-325MG 1 EACH TAB PO PRN (07:27)
[2024-02-12] MEDS ORDERED: traMADol 50 MG TAB PO PRN (07:27)
[2024-02-12] MEDS: CLINDAMYCIN 900 MG in DEXTROSE 5% IN WATER 50 ML IVPB PRN (07:32)
[2024-02-12] MEDS: VANCOMYCIN 1,250 MG in SODIUM CHLORIDE 0.9% 250 ML IVPB PRN (07:58)
[2024-02-12] MEDS: ROPIVACAINE/EPI/CLONIDINE/KET 50 ML SYRINGE MISCELLANE PRN (08:39)
--- NOTE | 2024-02-12 08:46 | P.ANPRN ---
Procedure Note - Anesthesia - Nerve Block Performed Right Nicolas Single Time Out Performed: Yes Date of Procedure: 02/12/24 Procedure Start Time: 07:15 Procedure Stop Time: :22 Location of Patient: PreOp Indication: Acute Post-Operative Pain, Requested by Surgeon Sedation Type: Sedate with meaningful contact maintained Preparation: Sterile Prep Position: Supine Needle Types: Pajunk Needle Gauge: 21 Ultrasound used to visualize needle placement: Yes Ultrasound used to observe medication spread: Yes Injectate: 0.5% Ropivacaine (see comment for volume) (25 ml = 4 MG dEXAMETHA SONE) Blood Aspirated: No Pain Paresthesia on Injection Noted: No Resistance on Injection: Normal Image Stored and Saved: Yes Events: Uneventful and Well Tolerated
--- NOTE | 2024-02-12 09:27 | FL ---
EXAMINATION TYPE: FL guidance operating room, XR Hip Limited RT Intraoperative/procedural fluoroscopi c services were provided. Total fluoroscopy time is 53 seconds with a total of 8 submitted images to PACS. Please see the operative/procedural note for further details. DAP: 3.6 x 4 Gycm2
--- NOTE | 2024-02-12 09:46 | P.OP ---
Date of Procedure: 02/12/24 Preoperative Diagnosis: severe right hip osteoarthritis Postoperative Diagnosis: same Procedure(s) Performed: right direct anterior total hip arthroplasty Implants: 1. [place] Trident II Acetabular Cup, Size #54 2. Kate Insignia Size #6 Femoral Stem, High Offset 3. Biolox delta femoral head, 36 mm, -5mm neck Anesthesia: SAIGE, josep Surgeon: Matthias Woo Grease Worker #1: Javi Higgins Estimated Blood Loss (ml): 200 IV fluids (ml): 800 Pathology: none sent Condition: stable Disposition: PACU Indications for Procedure: I had a long discussion with the patient in the office on the potential risks and complications of an elective total hip replacement through a direct anterior approach. Risks discussed include, but are certainly not limited to, risks from anesthesia, superficial infection requiring local wound care or antibiotics, deep camacho-prosthetic joint infection and the treatment required to eradicate infection, intraoperative fracture, postoperative periprosthetic fracture, damage to local blood vessels or nerves particularly the lateral femoral cutaneous nerve, delayed wound healing requiring local wound care or possibly surgical debridement, hip dislocation, leg length discrepancy, soft tissue irritation around the total hip implant such as iliopsoas tendinitis or trochanteric bursitis, wear and osteolysis from the implants, squeaking or audible noises, groin pain, thigh pain, heterotopic ossification, stiffness, aseptic loosening of the implants, dissatisfaction with surgical outcome, need for revision surgery, DVT, PE, swelling of the operative extremity, acute coronary event, stroke, failure to thrive, and possibly loss of life or limb. The patient understands that while these are the most common complications after an elective hip replacement there are certainly other less common complications possible. They were given ample time to ask questions regarding the potential complications of a hip replacement. Following our discussion the patient prov ided their verbal and written consent to go forward with an elective total hip replacement. Operative Findings: The right hip was severely arthritic with full-thickness cartilage loss over the femoral head and acetabulum Description of Procedure: The patient was identified in the preoperative holding area and the correct hip was marked with my initials. I reviewed the procedure and consent with the patient. All of their questions were answered. The patient was then brought back into the operating room by anesthesia. While on the [facility] anesthesia was administered by the anesthesia team. Preoperative antibiotics and tranexamic acid were also given. After the patient was under anesthesia I examined their ankles to determine their preoperative leg length discrepancy. The skin over the anterior aspect of the hip was shaved to remove hair over the site of planned incision. Both feet and ankles were padded with webril and boots for the Kenneth were applied. The patient was then carefully transferred onto the Kenneth table. A perineal post was immediately placed. The arms were placed on arm holders and were well-padded. Both boots were secured to the spars on the Kenneth table. The patient was positioned so that the pelvis was centered over the post. Nonsterile drapes were applied. A timeout was performed identifying the correct patient, operative extremity, and procedure. At this point fluoroscopy was brought in to take preoperative images of the pelvis and operative hip. Using the standing AP pelvis from the office as a template, a comparable image was obtained with fluoroscopy. A metallic bar was used to create a bi-ischial line for use as a reference to leg length adjustments during the procedure. Global offset was also measured on both the operative and nonoperative leg. Fluoroscopy was then brought out and a pre-scrub using a chlorhexidine scrub brush was performed. The operative limb was then prepped and draped in the standard sterile fashion. An anterior longitudinal incision was made lateral and distal to the ASIS. The skin and subcutaneous tissues were incised sharply. The underlying tensor fa scia was identified and incised in its midportion. The fascia was dissected free from the underlying muscle and the muscle belly was retracted. A blunt tipped cobra retractor was placed over the superior neck under the muscle fibers of the gluteus minimus. The deep enveloping fascia of the tensor was incised. The anterior leash of vessels were then identified and cauterized. The fascia between the rectus and the capsule was then incised and the pre-capsular fat was excised. A second Cobra was placed inferior to the neck. The interval between the rectus and iliocapsularis and the hip capsule was developed and a retractor was placed carefully over the anterior rim of the acetabulum. A T-shaped anterior capsulotomy was performed. The superior capsular leaflet was left in place in the inferior capsular flap was excised. The Cobra retractors were placed intracapsularly. We then made a femoral neck osteotomy according to preoperative and intraoperative templating and confirmed the level of the osteotomy using fluoroscopic imaging. The femoral head was removed, passed off to the back table, and sized. The superior capsular flap was excised. Retractors were placed circumferentially exposing the acetabulum. We then circumferentially debrided the acetabulum free of labrum and osteophytes. The pulvinar was removed to fully visualize the cotyloid fossa. We then sequentiall y reamed to achieve peripheral fit and excellent bleeding subchondral bone. The socket was thoroughly irrigated. The acetabular component was impacted into the appropriate position using fluoroscopy to guide version, inclination, and depth of insertion taking care to have a comparable image of the AP pelvis to the standing image taken in the office. An excellent press-fit was achieved and final position was confirmed using fluoroscopy. The liner was then impacted into the socket. Attention was then turned to the femur. The remnant dorsal lateral capsule was excised. The short external rotators were visible and protected. A bone hook was used to confirm appropriate translation of the trochanter away from the acetabulum. The leg was then extended and adducted and the bone hook was used to elevate the femur for broaching. A box osteotome and blunt tipped canal sound was then utilized to gain access to the femoral canal. We then sequentially broached the femur in appropriate anteversion until excellent torsional stability was achieved. The neck cut was brought flush to the trial broach with a calcar planar. A trial neck and head were then placed onto the broach and the hip was atraumatically reduced under direct visualization. External rotation to 90 was performed to assess stability. Fluoroscopy was brought in. An AP and lateral fluoroscopic image of the proximal femur was obtained to assess position and fill of the trial broach. An AP of the pelvis was then obtained and matched to the preoperative image taken. A bi-ischial bar was then placed and measurements were taken to assess changes in length and offset. The hip was then carefully dislocated, the proximal femur was exposed, and the trial implants were removed. The wound and proximal femur was thoro ughly irrigated using sterile saline and pulsatile lavage. The final femoral implant was dispensed and gently tapped into place generating an excellent press-fit. The trunnion was cleansed and the final head was tapped into place to engage the Daley taper. The acetabulum was irrigated and visualized to be free of debris. The hip was carefully reduced. Stability was checked clinically with external rotation to 90 and there was no evidence of instability. Final fluoroscopic images were taken. The wound was then thoroughly irrigated and soaked with a dilute Betadine rinse for 3 minutes. 3 L of sterile saline was irrigated through the wound using pulsatile lavage. Local anesthetic cocktail was injected into the soft tissues around the surgical field. The wound was then closed in layers. A sterile dressing was placed over the surgical incision. The drapes were taken down and the patient was carefully transferred off of the Kenneth table. Following removal of the boots the leg l engths felt acceptable. The patient was then taken to recovery room having tolerated the procedure well. Javi Higgins PA-C was required as a skilled per diem physical therapist assistant due to the complexity of surgery for patient positioning, draping, exposure, retraction, closure of wound, and application of dressing PLAN: The patient can weight-bear as tolerated on the operative extremity. DVT prophylaxis with aspirin 81 mg twice a day based on preoperative risk stratification. due to the patient's renal insufficiency we'll avoid NSAIDs in the perioperative period. Physical therapy for gait training. Leave surgical dressing in place. Internal medicine for perioperative medical management.
[2024-02-12] MEDS: MULTIVITAMINS, THERA 1 EACH TAB PO SCH (12:25)
[2024-02-12] MEDS: CLINDAMYCIN 900 MG in DEXTROSE 5% IN WATER 50 ML IVPB SCH (13:18)
[2024-02-12] MEDS: amLODIPine 10 MG TAB PO SCH (13:47)
[2024-02-12] MEDS ORDERED: IPRATROPIUM-ALBUTEROL 3 ML NEB INHALATION PRN (14:13)
[2024-02-12] MEDS: IPRATROPIUM-ALBUTEROL 3 ML NEB INHALATION SCH (16:42)
[2024-02-12] MEDS: ASPIRIN 81 MG PO SCH ×2 (20:54→22:20)
[2024-02-12] MEDS: PANTOPRAZOLE 40 MG/10 ML VIAL IVP SCH (20:54)
[2024-02-12] MEDS: buPROPion SR 150 MG TABLET.ER PO SCH (20:54)
[2024-02-12] MEDS: SENNOSIDES-DOCUSATE SODIUM 1 EACH TAB PO SCH (20:55)
[2024-02-12] MEDS: cloNIDine HCL 0.1 MG TAB PO SCH (20:55)
[2024-02-12] MEDS: polyethylene glycoL 3350 17 GM POWD.PACK PO SCH (20:55)
[2024-02-12] MEDS ORDERED: CALCIUM PO SCH (21:00)
[2024-02-12] MEDS ORDERED: MAGNESIUM PO SCH (21:00)
[2024-02-12] MEDS ORDERED: ZINC PO SCH (21:00)
[2024-02-12] MEDS: VANCOMYCIN 1,250 MG in SODIUM CHLORIDE 0.9% 250 ML IVPB ONE (23:17)
--- NOTE | 2024-02-12 23:36 | CONS ---
CONSULTATION REASON FOR CONSULTATION: Advice regarding CAD and other medications, requested by Orthopedics. HISTORY OF PRESENT ILLNESS: This is a 68-year-old gentleman with a past medical history of multiple medical problems including CAD, COPD, underwent right hip total arthroplasty. There is no history of any fever, rigors, or chills. No chest pain, no palpitations, no fever. PAST MEDICAL HISTORY: Reviewed include CAD, COPD, rest of the history and rest of the chart is also reviewed. HOME MEDICATIONS: Reviewed include metoprolol, dose and rest of medications reviewed. ALLERGIES: Hydralazine, penicillin. FAMILY HISTORY: CAD, dementia. SOCIAL HISTORY: Previous history of smoking. REVIEW OF SYSTEMS: A 14-point review is negative except as mentioned earlier. PHYSICAL EXAMINATION: VITAL SIGNS: Pulse is 48, blood pressure 110/50, respirations 16. HEENT: Conjunctivae normal. NECK: No jugular venous distention. RESPIRATIONS: Diminished at the bases. No rhonchi, no crackles. ABDOMEN: Soft, nontender. LEGS: Status post surgery. NERVOUS SYSTEM: No focal deficits. SKIN: No ulcer, rash, bleeding. JOINTS: No active deforming arthropathy. LABORATORY DATA: Accu-Cheks 127. ASSESSMENT: 1. Status post right total hip joint arthroplasty. 2. Bradycardia. 3. Coronary artery disease. 4. Chronic obstructive pulmonary disease. 5. Hypertension. 6. Hyperlipidemia. 7. Multiple complex medical issues. RECOMMENDATIONS AND DISCUSSION: This is a 68-year-old gentleman who presented with multiple complex medical issues, we will monitor the patient closely. Continue with current management, continue symptomatic treatment, and the patient has some bradycardia. I would recommend to avoid beta blockers for now. Continue to monitor, remote telemetry, otherwise EKG. Home medication will be resumed once they are confirmed. We will follow the patient closely with you. MMODL / IJN: [id number] /
[2024-02-13] MEDS: HYDROcodone/APAP 5-325MG 1 EACH TAB PO PRN (05:08)
[2024-02-13] MEDS: METOPROLOL TARTRATE 50 MG TAB PO SCH (08:15)
[2024-02-13] MEDS: cloNIDine HCL 0.1 MG TAB PO SCH (08:16)
[2024-02-13] MEDS: DAPAGLIFLOZIN PROPANEDIOL 10 MG TABLET PO SCH (08:16)
[2024-02-13] MEDS: FAMOTIDINE 20 MG TAB PO SCH (08:16)
[2024-02-13] MEDS ORDERED: [UNRECOGNIZED DRUG - OTHER] PO SCH (09:00)
[2024-02-13] MEDS ORDERED: MULTIVIT MIN PO SCH (09:00)
[2024-02-13] MEDS ORDERED: LYCOP PO SCH (09:00)
[2024-02-13] MEDS ORDERED: FOLIC PO SCH (09:00)
[2024-02-13] MEDS ORDERED: VIT K PO SCH (09:00)
[2024-02-13 09:16] LABS: HGB 10.9 g/dL (13.0-17.0); MCHC 31.1 g/dL (32.0-37.0); MCV 86.8 FL (80.0-97.0); Mean Platelet Volume 10.8 FL (9.5-12.2); NRBC Per 100 WBC 0 X 10*3/uL (0.00-0.01); Platelet Count 290 X 10*3/uL (140-440); RBC 4.03 X 10*6/uL (4.40-5.60); RDW 13.5 % (11.5-14.5); WBC 17.54 X 10*3/uL (4.50-10.00)
[2024-02-13 10:41] LABS: Basophils # (A) 0.03 X 10*3/uL (0.00-0.10); Basophils % (A) 0.2 %; Eosinophils # (A) 0.01 X 10*3/uL (0.04-0.35); Eosinophils % (A) 0.1 %; Lymphocytes # (A) 1.34 X 10*3/uL (0.90-5.00); Lymphocytes % (A) 7.6 %; Monocytes % (A) 9.7 %; Neutrophils # (A) 14.36 X 10*3/uL (1.80-7.70); Neutrophils % (A) 81.8 %; RBC Morphology Normal (Normal)
[2024-02-13 11:45] LABS: ALT 20 U/L (10-49); AST 34 U/L (14-35); Albumin 3.7 g/dL (3.8-4.9); Albumin/Globulin Ratio 1.48 Ratio (1.60-3.17); Alkaline Phosphatase 86 U/L (41-126); BUN/Creat Ratio 16.94 Ratio (12.00-20.00); Blood Urea Nitrogen 28.8 mg/dL (9.0-27.0); Carbon Dioxide 18.9 mmol/L (21.6-31.8); Chloride 104 mmol/L (96-109); Globulin 2.5 g/dL (1.6-3.3); Glucose 128 mg/dL (70-110); Potassium 4.7 mmol/L (3.5-5.5); Sodium 137 mmol/L (135-145); Total Bilirubin 0.3 mg/dL (0.3-1.2); Total Protein 6.2 g/dL (6.2-8.2)
--- NOTE | 2024-02-13 12:47 | P.DS ---
Providers Date of admission: 02/12/2024 Attending physician: Matthias Woo Consults: 02/12/24 07:27 Consult Physician Routine Consulting Provider: Vern Dixon Consult Reason/Comments: post op medical management Do you want consulting provider notified?: Yes Primary care physician: Marti Bui [facility] Course: The patient is very pleasant previously healthy 68-year-old male who was a dmitted under my care and underwent an uncomplicated total hip placement. Following surgery was transferred to the orthopedic floor. He received 2 doses of postoperative antibiotics. He was transitioned from IV to oral pain medication. He was seen on postoperative day #1 and was doing well. The dressing over his hip is intact with no drainage. His thigh was soft. Femoral and sciatic nerve function were intact. The patient worked with physical therapy. Internal medicine was consulted. The patient was ultimately cleared for discharge home. Plan - Discharge Summary Discharge Rx Participant: Yes New Discharge Prescriptions: New Docusate [Colace] 100 mg PO BID #28 capsule Doxycycline Monohydrate 100 mg PO BID #28 cap HYDROcodone/APAP 5-325MG [[place] 5-325] 1 - 2 tab PO Q6HR PRN #32 tab PRN Reason: Pain Aspirin 81 mg PO BID #60 tab Omeprazole 40 mg PO DAILY #30 cap No Action amLODIPine [Norvasc] 10 mg PO DAILY #30 tab buPROPion HCL [Wellbutrin SR] 150 mg PO Q12H Metoprolol Tartrate [Lopressor] 25 mg PO HS Multivit-Min/Folic/Vit K/Lycop [Men's Multivitamin Tablet] 1 each PO DAILY Magnesium/Calcium/Zinc 1 tab PO BID polyethylene glycoL 3350 [Miralax] 17 gm PO HS Dapagliflozin Propanediol [Farxiga] 10 mg PO DAILY Aspirin [Adult Low Dose Aspirin EC] 81 mg PO BID cloNIDine HCL [Clonidine HCl] 0.1 mg PO HS cloNIDine HCL [Catapres] 0.2 mg PO DAILY Metoprolol Tartrate [Lopressor] 50 mg PO DAILY traMADol HCL 50 mg PO BID Discharge Medication List amLODIPine [Norvasc] 10 mg PO DAILY #30 tab 01/21/17 [Rx] Aspirin [Adult Low Dose Aspirin EC] 81 mg PO BID 08/29/22 [History] Magnesium/Calcium/Zinc 1 tab PO BID 08/29/22 [History] Metoprolol Tartrate [Lopressor] 25 mg PO HS 08/29/22 [History] Multivit-Min/Folic/Vit K/Lycop [Men's Multivitamin Tablet] 1 each PO DAILY 08/29/22 [History] buPROPion HCL [Wellbutrin SR] 150 mg PO Q12H 08/29/22 [History] Dapagliflozin Propanediol [Farxiga] 10 mg PO DAILY 02/09/24 [History] Metoprolol Tartrate [Lopressor] 50 mg PO DAILY 02/09/24 [History] cloNIDine HCL [Catapres] 0.2 mg PO DAILY 02/09/24 [History] cloNIDine HCL [Clonidine HCl] 0.1 mg PO HS 02/09/24 [History] polyethylene glycoL 3350 [Miralax] 17 gm PO HS 02/09/24 [History] traMADol HCL 50 mg PO BID 02/09/24 [History] Aspirin 81 mg PO BID #60 tab 02/12/24 [Rx] Docusate [Colace] 100 mg PO BID #28 capsule 02/12/24 [Rx] Doxycycline Monohydrate 100 mg PO BID #28 cap 02/12/24 [Rx] HYDROcodone/APAP 5-325MG [[place] 5-325] 1 - 2 tab PO Q6HR PRN #32 tab 02/12/24 [Rx] Omeprazole 40 mg PO DAILY #30 cap 02/12/24 [Rx] Follow up Appointment(s)/Referral(s): [facility], [NON-STAFF] - 1-2 Days ([facility] will call you to schedule your in home physical therapy visits. ) Matthias Woo MD [Medical Doctor] - 2 Weeks Activity/Diet/Wound Care/Special Instructions: 1. Weight-bear as tolerated on your operative extremity unless instructed otherwise. Use a walker or other assistive device to ambulate. 2. Leave surgical dressing in place. If your dressing becomes saturated with blood, there is drainage, or the dressing becomes loose please contact the office. 3. It is okay to shower with your surgical dressing, but do not submerge in water (no hot tubs, bath's, swimming etc.) 4. Make sure to take her blood clot prevention medication as prescribed (aspirin, Eliquis, Xarelto, and Plavix are commonly prescribed medications for blood clot prevention) 5. While taking [place] or Percocet for pain make sure you're taking a stool softener (Colace) and drink lots of water. 6. Keep all follow-up appointments as scheduled. You will usually be seen in 1-2 weeks following surgery. 7. Please contact the office with any questions or concerns [phone] Discharge Disposition: HOME WITH HOME HEALTH SERVICES
[2024-02-13] MEDS: TAMSULOSIN 0.4 MG CAP.ER.24H PO STA (13:08)
[2024-02-13 15:07] VITALS: BP 143/87; PULSE 55; RESP 16; TEMP 97.8
--- NOTE | 2024-02-14 02:33 | PN ---
PROGRESS NOTE DATE OF SERVICE: 02/13/2024 SUBJECTIVE: This is a 68-year-old gentleman who was admitted with right total hip joint arthroplasty, is improving significantly. No chest pain, no palpitations, no fever. OBJECTIVE: VITAL SIGNS: Pulse 79, blood pressure is 140/60, respirations 17. CHEST: Clear to auscultation. CARDIOVASCULAR: S1, S2. ABDOMEN: Soft. NERVOUS SYSTEM: No focal deficits. LABORATORY DATA: Reviewed. PACs on EKG. ASSESSMENT: 1. Status post right total hip joint arthroplasty. 2. Bradycardia, improved. 3. Coronary artery disease. 4. COPD. 5. Hypertension. 6. Hyperlipidemia. 7. Multiple complex medical issues. RECOMMENDATIONS AND DISCUSSION: I recommended to continue current management, continue symptomatic treatment. Otherwise recommended close followup with primary physician. The patient has some PACs in the EKG. Closely follow with Primary. IMER / KAT: [id number] /
== END 2024-02-13 15:08 | disposition home health service (06) ==
LOC: OR 05:47 → 4SSUR 09:31 → OR 02-13 15:08
PROVIDERS: ATTEND Orthopaedic Surgery
DX: M16.11 Unilateral primary osteoarthritis, right hip (principal); M25.751 Osteophyte, right hip; I10 Essential (primary) hypertension; E78.5 Hyperlipidemia, unspecified; F32.A Depression, unspecified; Z79.899 Other long term (current) drug therapy; Z87.891 Personal history of nicotine dependence
CPT/HCPCS: 94640 ×4; 97116; 97162; 64447; 80053; 84132; 84484; 85025; 73501; 27130; C1776; J2250; J3370; J1100; S0106 ×2; J2405; J3010; J3490; J1885; C9113 ×2; J0736